=== PATIENT | male | born 1970 | race Two or more races ===

== ENCOUNTER 2017-08-05 23:29 | Inpatient (IN) | payer MEDICAID ==
[~2017-08-05] VITALS: Ht 160 cm; Wt 93.9 kg
[2017-08-05] MEDS ORDERED: NKM (23:54)
[2017-08-06] VITALS (15 sets, daily range): BP systolic 123–158; BP diastolic 73–132
--- NOTE | 2017-08-06 00:38 | Emergency Room Report ---
History of Present Illness General Chief Complaint: Abdominal Pain Source: Patient Present Illness HPI 47-year-old male with 2-3 days of right lower quadrant abdominal pain, one episode of nausea vomiting, and no constipation. No difficulty urinating. No history of prior abdominopelvic surgery. No chronic drinking, smoking or drug use.. no sick contacts. Patient states pain started after he had bad food Saturday night. Allergies: Coded Allergies: No Known Allergies (Unverified , 08/05/17) Patient History Past Medical History: none Past Surgical History: none Pertinent Family History: none Social History: Denies: smoking, alcohol use, drug use Immunizations: UTD Reviewed Nursing Documentation: PMH: Agreed, PSxH: Agreed Nursing Documentation-PMH Past Medical History: No Stated History Review of Systems All Other Systems: negative except mentioned in HPI Physical Exam Vital Signs Date Time Temp Pulse Resp B/P (MAP) Pulse Ox O2 Delivery O2 Flow Rate FiO2 08/05/17 23:48 98.1 115 18 127/78 95 Room Air Sp02 EP Interpretation: reviewed, normal General Appearance: normal inspection, well appearing, no apparent distress, alert, GCS 15, non-toxic, obese Head: normocephalic, atraumatic Eyes: bilateral eye PERRL, bilateral eye EOMI ENT: normal ENT inspection, hearing grossly normal, normal pharynx, no angioedema, normal voice, TMs + canals normal, uvula midline, moist mucus membranes Neck: normal inspection, full range of motion, supple, thyroid normal, no meningismus, no bony tend Respiratory: normal inspection, lungs clear, normal breath sounds, no rhonchi, no respiratory distress, no retraction, no accessory muscle use, no wheezing, speaking full sentences Cardiovascular #1: regular rate, rhythm, no edema, no JVD, normal capillary refill Gastrointestinal: normal inspection, normal bowel sounds, soft, no mass, no peritonitis, non-distended, no guarding, no hernia, no pulsatile mass, other - Right upper quadrant tenderness to palpation Genitourinary: no CVA tenderness Musculoskeletal: normal inspection, back normal, normal range of motion, no calf tenderness, pelvis stable, Christi's Sign negative Neurologic: normal inspection, alert, oriented x3, responsive, customer assistance associate III-XII nml as tested, motor strength/tone normal, cerebellar normal, normal gait, speech normal Psychiatric: normal inspection, judgement/insight normal, mood/affect normal, no suicidal/homicidal ideation, no delusions Skin: normal inspection, normal color, no rash Lymphatic: normal inspection, no adenopathy Procedures Critical Care Time Critical Care Time CC time 40 minutes Critical care time endorsed for this patient for severe RLQ pain found to have perforated appendicitis Critical care time includes review of laboratory tests, imaging, review of EMR, review of paperwork from SNF (if available), discussion with patient and family (if available), review of code status/POLS (if available). Critical care time also likely includes assessment of fluid status, stabilization of vital signs, selection and dosing of appropriate antibiotics Critical care time does not include any procedures which are documented elsewhere in this EMR. Medical Decision Making Diagnostic Impression: Primary Impression: Abdominal pain Qualified Codes: R10.11 - Right upper quadrant pain Additional Impression: Perforated appendicitis ER Course [id number] with right upper quadrant pain for 2-3 days associated with nausea and constipation vitals Signs stable, afebrile Leuks 19K CTAP with perforated appendicitis Dr Mcdowell consulted 235am, saw patient, will take to OR Made NPO Coags, T&S done Zosyn ABx given Admitted to Dr Pendleton, panel admit Med/surg admit 336am Rhythm Strip Diag. Results EP Interpretation: yes Rate: 98 Rhythm: NSR, no PVC's, no ectopy Last Vital Signs Date Time Temp Pulse Resp B/P (MAP) Pulse Ox O2 Delivery O2 Flow Rate FiO2 2/5/18 23:48 98.1 115 18 127/78 95 Room Air Status: improved Disposition: ADMITTED INPATIENT Condition: Critical RALPH CURIEL M.D. Aug 06, 2017 00:38
[2017-08-06] MEDS ORDERED: Morphine Sulfate 4mg/ml Inj IVP ONE (00:45)
[2017-08-06 01:44] LABS: HEMATOCRIT 50.8 % (42.0-52.0); HEMOGLOBIN 16.9 G/DL (14.2-18.0); MEAN CORPUSCULAR VOLUME 90 FL (80-99); PLATELET COUNT 266 K/UL (150-450); RED BLOOD COUNT 5.66 M/UL (4.70-6.10); RED CELL DISTRIBUTION WIDTH 13.4 % (11.6-14.8); WHITE BLOOD COUNT 18.4 K/UL (4.8-10.8)
[2017-08-06 01:48] LABS: APPEARANCE,URINE CLEAR; BILIRUBIN, URINE 1+ (NEGATIVE); GLUCOSE, URINE (UA) NEGATIVE (NEGATIVE); KETONES,URINE NEGATIVE (NEGATIVE); LEUKOCYTE ESTERASE ,URINE 1+ (NEGATIVE); NITRITE,URINE NEGATIVE (NEGATIVE); PH,URINE 6 (4.5-8.0); PROTEIN,URINE 3+ (NEGATIVE); UROBILINOGEN,URINE 8 MG/DL (0.0-1.0)
[2017-08-06 01:51] LABS: ANION GAP 8 mmol/L (5-15); BLOOD UREA NITROGEN 17 mg/dL (7-18); CALCIUM 8.6 MG/DL (8.5-10.1); CARBON DIOXIDE 26 MMOL/L (21-32); CHLORIDE 98 MMOL/L (98-107); CREATININE 1.2 MG/DL (0.55-1.30); POTASSIUM 3.7 MMOL/L (3.5-5.1); SODIUM 132 MMOL/L (136-145)
[2017-08-06 01:53] LABS: INR 1.3 (0.9-1.1)
[2017-08-06 01:56] LABS: ALANINE AMINOTRANSFERASE 38 U/L (12-78); ALBUMIN 3.7 G/DL (3.4-5.0); ALBUMIN/GLOBULIN RATIO 0.8 (1.0-2.7); ALKALINE PHOSPHATASE 102 U/L (46-116); ASPARTATE AMINO TRANSFERASE 11 U/L (15-37); BILIRUBIN,TOTAL 0.7 MG/DL (0.2-1.0)
[2017-08-06 02:04] LABS: COLOR,URINE YELLOW
[2017-08-06] MEDS ORDERED: Zosyn 3.375gm inj ONE (02:42)
[2017-08-06] MEDS ORDERED: Piperacillin/Tazobactam 3.375 GM in NS 110 ML IVPB ONE (02:45)
--- NOTE | 2017-08-06 03:39 | Anethesia Preoperative Eval ---
Anesthesia Pre-op PMH/ROS General Date of Evaluation: Aug 06, 2017 Anesthesiologist: Naz ASA Score: ASA 2 Mallampati Score Class I : Soft palate, uvula, fauces, pillars visible Class II: Soft palate, uvula, fauces visible Class III: Soft palate, base of uvula visible Class IV: Only hard plate visible Mallampati Classification: Class II Surgeon: July Diagnosis: Perforated Appendix Surgical Procedure: Lap appy Anesthesia History: none Family History: no anesthesia problems Allergies: Coded Allergies: No Known Allergies (Unverified , 08/05/17) Medications: see eMAR Past Medical History Cardiovascular: Denies: HTN, CAD, [place], valve dz, arrhythmia, other Pulmonary: Denies: asthma, COPD, LUISA, other Gastrointestinal/Genitourinary: Denies: GERD, CRI, ESRD, other Neurologic/Psychiatric: Denies: dementia, CVA, depression/anxiety, TIA, other Endocrine: Denies: DM, hypothyroidism, steroids, other HEENT: Denies: cataract (L), cataract (R), glaucoma, [place] (L), [place] (R), other Hematology/Immune: Denies: anemia, DVT, bleeding disorder, other Musculoskeletal/Integumentary: Denies: OA, RA, DJD, DDD, edema, other Other: obesity PMH Narrative: Obesity, acute perforated appendicitis PSxH Narrative: Denies Anesthesia Pre-op Phys. Exam Physician Exam Last Vital Signs Date Time Temp Pulse Resp B/P (MAP) Pulse Ox O2 Delivery O2 Flow Rate FiO2 08/06/17 03:00 101 14 153/132 96 08/06/17 02:40 98.1 08/05/17 23:48 Room Air Constitutional: NAD Neurologic: CN 2-12 intact Cardiovascular: RRR, no M/R/G Respiratory: CTA Gastrointestinal: S/NT/ND Airway Exam Mallampati Score: Class II MO: full ROM: full Teeth: intact Anesthesia Pre-op A/P Labs Hematology Test 08/06/17 01:45 White Blood Count 18.4 K/UL (4.8-10.8) H Red Blood Count 5.66 M/UL (4.70-6.10) Hemoglobin 16.9 G/DL (14.2-18.0) Hematocrit 50.8 % (42.0-52.0) Mean Corpuscular Volume 90 FL (80-99) Mean Corpuscular Hemoglobin 29.8 PG (27.0-31.0) Mean Corpuscular Hemoglobin Concent 33.2 G/DL (32.0-36.0) Red Cell Distribution Width 13.4 % (11.6-14.8) Platelet Count 266 K/UL (150-450) Mean Platelet Volume 6.2 FL (6.5-10.1) L Neutrophils (%) (Auto) % (45.0-75.0) Lymphocytes (%) (Auto) % (20.0-45.0) Monocytes (%) (Auto) % (1.0-10.0) Eosinophils (%) (Auto) % (0.0-3.0) Basophils (%) (Auto) % (0.0-2.0) Coagulation Test 08/06/17 01:45 Prothrombin Time 13.5 SEC (9.30-11.50) H Prothromb Time International Ratio 1.3 (0.9-1.1) H Chemistry Test 08/06/17 01:45 08/06/17 03:00 Sodium Level 132 MMOL/L (136-145) L Potassium Level 3.7 MMOL/L (3.5-5.1) Chloride Level 98 MMOL/L (98-107) Carbon Dioxide Level 26 MMOL/L (21-32) Anion Gap 8 mmol/L (5-15) Blood Urea Nitrogen 17 mg/dL (7-18) Creatinine 1.2 MG/DL (0.55-1.30) Estimat Glomerular Filtration Rate > 60 mL/min (>60) Glucose Level 136 MG/DL (74-106) H Calcium Level 8.6 MG/DL (8.5-10.1) Total Bilirubin 0.7 MG/DL (0.2-1.0) Aspartate Amino Transf (AST/SGOT) 11 U/L (15-37) L Alanine Aminotransferase (ALT/SGPT) 38 U/L (12-78) Alkaline Phosphatase 102 U/L (46-116) Total Protein 8.4 G/DL (6.4-8.2) H Albumin 3.7 G/DL (3.4-5.0) Globulin 4.7 g/dL Albumin/Globulin Ratio 0.8 (1.0-2.7) L Lipase 123 U/L (73-393) Lactic Acid Level Pending Risk Assessment & Plan Assessment: Obese male with perforated appendix Plan: GETA, rapid sequence, cricoid pressure Status Change Before Surgery: No Pre-Antibiotics Drug: Patient received Zosyn in ER CHAD LOPEZ M.D. Aug 06, 2017 03:39
--- NOTE | 2017-08-06 03:40 | Immediate Post-Op Evaluation ---
Immediate Post-Op Evalulation Immediate Post-Op Evalulation Procedure: Open appendectomy Date of Evaluation: Aug 06, 2017 Time of Evaluation: 06:35 IV Fluids: 1700 Estimated Blood Loss: 100 Blood Pressure Systolic: 135 Blood Pressure Diastolic: 88 Pulse Rate: 92 Respiratory Rate: 18 O2 Sat by Pulse Oximetry: 98 Temperature (Fahrenheit): 98.9 Pain Score (1-10): 0 Nausea: No Vomiting: No Complications No complication Patient Status: reacts, patent, extubated, none Hydration Status: adequate Drug: Patient received Zosyn in the ER CHAD LOPEZ M.D. Aug 06, 2017 03:40
[2017-08-06] MEDS ORDERED: LR 1000ml 1,000 ML IVLG SCH (03:41)
[2017-08-06] MEDS ORDERED: LORazepam Inj 2mg/ml 1ml IV PRN (03:45)
[2017-08-06] MEDS ORDERED: Meperidine 50mg/ml Inj(FOR RIGORS ONLY) IVP ONE (03:45)
[2017-08-06] MEDS ORDERED: Hydromorphone 0.5mg/0.5ml inj IVP PRN (03:45)
[2017-08-06] MEDS ORDERED: DiphenhydrAMINE 50mg/ml Inj IVP PRN (03:45)
[2017-08-06] MEDS ORDERED: Bacitracin 50000 Units Vial ONE (03:49)
[2017-08-06] MEDS ORDERED: NeoSporin Gu Irrig 1ml Amp IRRIG ONE (03:49)
[2017-08-06] MEDS ORDERED: Bupivacaine 0.25% Inj 30ml INJ ONE ×2 (03:49→05:50)
[2017-08-06] MEDS ORDERED: Propofol 200mg/20ml IV ONE ×2 (03:50→05:30)
[2017-08-06] MEDS ORDERED: Zemuron 50mg/5ml Inj IV ONE (04:00)
[2017-08-06] MEDS ORDERED: fentaNYL 100 mcg/2 mL IV ONE (04:00)
[2017-08-06] MEDS ORDERED: Midazolam 2mg/2ml Inj ONE (04:00)
[2017-08-06] MEDS ORDERED: Morphine Sulfate 10mg/ml Inj ONE (04:00)
[2017-08-06] MEDS ORDERED: Sterile Water Irrig 1000ml IRRIG ONE (04:00)
[2017-08-06] MEDS ORDERED: LR 1000ml ONE (04:00)
[2017-08-06] MEDS ORDERED: Succinylcholine 20mg/ml 10ml vial ONE (04:00)
--- NOTE | 2017-08-06 04:30 | Pre-Procedure Note/Attestation ---
Pre-Procedure Note/Attestation Complete Prior to Procedure Planned Procedure: not applicable Procedure Narrative: laparoscopic appendectomy possible open appendectomy Indications for Procedure Pre-Operative Diagnosis: acute appendicitis Attestation I attest that I discussed the nature of the procedure; its benefits; risks and complications; and alternatives (and the risks and benefits of such alternatives ), prior to the procedure, with the patient (or the patient's legal patient care representative). I attest that, if there was a reasonable possibility of needing a blood transfusion, the patient (or the patient's legal patient care representative) was given the [facility] standardized written summary, pursuant to the Jeremiah Jasen Blood Safety Act ([place] Health and Safety Code # 1645, as amended). I attest that I re-evaluated the patient just prior to the surgery and that there has been no change in the patient's H&P, except as documented below: SAMMIE LOO Aug 06, 2017 04:30
[2017-08-06] MEDS ORDERED: D5 1/2NS 1,000 ML IV SCH (05:07)
[2017-08-06] MEDS ORDERED: Nitroglycerin Subl 0.4mg tab SL PRN (05:15)
[2017-08-06] MEDS ORDERED: Miralax 17gm pkt ORAL PRN (05:15)
[2017-08-06] MEDS ORDERED: Mylanta II UD 30ml ORAL PRN (05:15)
[2017-08-06] MEDS ORDERED: Morphine Sulfate 2mg/ml Inj IVP PRN (05:15)
--- NOTE | 2017-08-06 06:01 | Brief Operative Note ---
Immediate Post Operative Note Operative Note Pre-op Diagnosis: acute appendicitis Procedure: attempted lap appy open appendectomy Post-op Diagnosis: acute perforated appendicitis Findings: consistent w/pre-op dx studies Surgeon: Radha Salvage Repairer: none Anesthesiologist: Dr. Goodrich Anesthesia: general Specimen: yes Complications: none Condition: stable Fluids: per anesthesiologist Estimated Blood Loss: volume - 100 ml Drains: GEOFF Implant(s) used?: No SAMMIE LOO Aug 06, 2017 06:01
[2017-08-06] MEDS ORDERED: Acetaminophen 650 MG SUPP RECTAL PRN (07:00)
[2017-08-06] MEDS: D5 1/2NS w/KCl 20mEq 1,000 ML IV SCH ×2 (09:46→19:00)
[2017-08-06] MEDS: Heparin 5000 units/ml inj SUBQ SCH ×2 (09:48→20:24)
[2017-08-06] MEDS: Pantoprazole Inj IVP SCH (09:48)
[2017-08-06] MEDS: HYDROmorphone 1mg/ml Carpuject IVP PRN ×3 (10:04→21:40)
--- NOTE | 2017-08-06 12:36 | Consultation ---
History of Present Illness General Date patient seen: Aug 06, 2017 Time patient seen: 12:34 Chief Complaint: Abdominal Pain Present Illness HPI 47 y/o M with no prior medical hx presents to ED on 08/06 with 2-3 days of RLQ pain, nausea and vomiting x1. He was foudn to have acute appendicitis and underwent open appendectomy after attempt lap appy. Was found to have acute perforated appendicitis. Denies constipation, urinary symptoms, sick contacts Allergies: Coded Allergies: No Known Allergies (Unverified , 08/05/17) Medication History Scheduled No Known Medications* (NKM - No Known Medications*), 0 ., (Reported) Patient History Healthcare decision maker Resuscitation status Advanced Directive on File Patient History Narrative Pmhx: as above SH:No chronic drinking, smoking or drug use Fhx: non contributory Review of Systems All Other Systems: negative except mentioned in HPI Physical Exam Physical Exam Narrative General Appearance: normal inspection, well appearing, no apparent distress, alert,bese Head: normocephalic, atraumatic Eyes: bilateral eye PERRL, bilateral eye EOMI ENT: normal ENT inspection, hearing grossly normal, normal pharynx, no angioedema, normal voice, TMs + canals normal, uvula midline, moist mucus membranes Neck: normal inspection, full range of motion, supple, thyroid normal, no meningismus, no bony tend Respiratory: normal inspection, lungs clear, normal breath sounds, no rhonchi, no respiratory distress, no retraction, no accessory muscle use, no wheezing, speaking full sentences Cardiovascular : regular rate, rhythm, no edema, no JVD, normal capillary refill Gastrointestinal: surgical dressings and GEOFF drain in place Genitourinary: no CVA tenderness Musculoskeletal: normal inspection, back normal, normal range of motion, no calf tenderness, pelvis stable, Skin: normal inspection, normal color, no rash Last 24 Hour Vital Signs Date Time Temp Pulse Resp B/P (MAP) Pulse Ox O2 Delivery O2 Flow Rate FiO2 08/06/17 10:30 98.5 08/06/17 07:34 98.5 08/06/17 07:27 98.3 97 26 137/75 96 Nasal Cannula 3.0 08/06/17 07:20 96 26 123/73 96 Nasal Cannula 3.0 08/06/17 07:10 96 27 128/75 96 Nasal Cannula 3.0 08/06/17 07:00 92 26 128/88 98 Nasal Cannula 3.0 08/06/17 06:50 88 25 141/88 100 Simple Mask 6.0 08/06/17 06:45 91 24 135/84 100 Simple Mask 6.0 08/06/17 06:35 90 21 133/89 100 Simple Mask 6.0 08/06/17 06:30 91 20 135/88 99 Simple Mask 6.0 08/06/17 06:30 92 18 98 08/06/17 06:25 98.9 93 18 147/78 99 Simple Mask 6.0 08/06/17 04:00 98.1 101 14 158/108 95 Room Air 89 08/06/17 03:47 98.1 89 14 158/108 95 Room Air 08/06/17 03:00 101 14 153/132 96 08/06/17 02:40 98.1 08/06/17 02:00 104 16 151/100 96 08/06/17 00:30 116 15 142/93 98 08/05/17 23:48 98.1 115 18 127/78 95 Room Air Intake and Output 08/05/17 08/06/17 19:00 07:00 Intake Total 700 ml Output Total 10 ml Balance 690 ml Intake Oral 0 ml IV Total 700 ml Output Estimated Blood Loss 10 ml Laboratory Tests Test 08/06/17 01:45 08/06/17 03:00 White Blood Count 18.4 K/UL (4.8-10.8) H Red Blood Count 5.66 M/UL (4.70-6.10) Hemoglobin 16.9 G/DL (14.2-18.0) Hematocrit 50.8 % (42.0-52.0) Mean Corpuscular Volume 90 FL (80-99) Mean Corpuscular Hemoglobin 29.8 PG (27.0-31.0) Mean Corpuscular Hemoglobin Concent 33.2 G/DL (32.0-36.0) Red Cell Distribution Width 13.4 % (11.6-14.8) Platelet Count 266 K/UL (150-450) Mean Platelet Volume 6.2 FL (6.5-10.1) L Neutrophils (%) (Auto) % (45.0-75.0) Lymphocytes (%) (Auto) % (20.0-45.0) Monocytes (%) (Auto) % (1.0-10.0) Eosinophils (%) (Auto) % (0.0-3.0) Basophils (%) (Auto) % (0.0-2.0) Prothrombin Time 13.5 SEC (9.30-11.50) H Prothromb Time International Ratio 1.3 (0.9-1.1) H Urine Color Yellow Urine Appearance Clear Urine pH 6 (4.5-8.0) Urine Specific [place] 1.015 (1.005-1.035) Urine Protein 3+ (NEGATIVE) H Urine Glucose (UA) Negative (NEGATIVE) Urine Ketones Negative (NEGATIVE) Urine Occult Blood 1+ (NEGATIVE) H Urine Nitrite Negative (NEGATIVE) Urine Bilirubin 1+ (NEGATIVE) H Urine Ictotest Positive Urine Urobilinogen 8 MG/DL (0.0-1.0) H Urine Leukocyte Esterase 1+ (NEGATIVE) H Urine RBC 10-15 /HPF (0 - 0) H Urine WBC 0-2 /HPF (0 - 0) Urine Squamous Epithelial Cells None /LPF (NONE/OCC) Urine Bacteria Few /HPF (NONE) Urine Mucus Many /LPF (NONE/OCC) H Sodium Level 132 MMOL/L (136-145) L Potassium Level 3.7 MMOL/L (3.5-5.1) Chloride Level 98 MMOL/L (98-107) Carbon Dioxide Level 26 MMOL/L (21-32) Anion Gap 8 mmol/L (5-15) Blood Urea Nitrogen 17 mg/dL (7-18) Creatinine 1.2 MG/DL (0.55-1.30) Estimat Glomerular Filtration Rate > 60 mL/min (>60) Glucose Level 136 MG/DL (74-106) H Calcium Level 8.6 MG/DL (8.5-10.1) Total Bilirubin 0.7 MG/DL (0.2-1.0) Aspartate Amino Transf (AST/SGOT) 11 U/L (15-37) L Alanine Aminotransferase (ALT/SGPT) 38 U/L (12-78) Alkaline Phosphatase 102 U/L (46-116) Total Protein 8.4 G/DL (6.4-8.2) H Albumin 3.7 G/DL (3.4-5.0) Globulin 4.7 g/dL Albumin/Globulin Ratio 0.8 (1.0-2.7) L Lipase 123 U/L (73-393) Lactic Acid Level 0.90 mmol/L (0.66-2.22) Height (Feet): 5 Height (Inches): 3.00 Weight (Pounds): 207 Medications Current Medications Medications (Trade) Dose Ordered Sig/Vinh Route PRN Reason Start Time Stop Time Status Last Admin Dose Admin Acetaminophen (Tylenol) 650 mg Q4H PRN ORAL fever 08/06/17 05:15 09/05/17 05:14 Acetaminophen (Tylenol) 650 mg Q4H PRN RECTAL Mild Pain (Pain Scale 1-3) 08/06/17 07:00 09/05/17 06:59 Dextrose (Dextrose 50%) STAT PRN IV Hypoglycemia 08/06/17 05:15 09/05/17 05:14 Dextrose/ Electrolytes 1,000 ml @ 100 mls/hr Q10H IV 08/06/17 09:00 09/05/17 08:59 08/06/17 09:46 Diphenhydramine HCl (Benadryl) 25 mg Q6H PRN ORAL Itching/Pruritis 08/06/17 05:15 09/05/17 05:14 Gentamicin Sulfate/Sodium Chloride 50 ml @ 100 mls/hr EVERY 8 HOURS IVPB 08/06/17 14:00 08/07/17 08:00 Heparin Sodium (Porcine) (Heparin 5000 units/ml) 5,000 units EVERY 12 HOURS SUBQ 08/06/17 09:00 09/05/17 08:59 08/06/17 09:48 Hydromorphone HCl (Dilaudid) 1 mg Q4H PRN IVP MOD-SEVERE PAIN 4-10 08/06/17 07:00 08/13/17 06:59 08/06/17 10:04 Nitroglycerin (Ntg) 0.4 mg Q5M X 3 DOSES PRN SL Prn Chest Pain 08/06/17 05:15 09/05/17 05:14 Ondansetron HCl (Zofran) 4 mg Q6H PRN IVP Nausea & Vomiting 08/06/17 05:15 09/05/17 05:14 Pantoprazole (Protonix) 40 mg DAILY IVP 08/06/17 09:00 09/05/17 08:59 08/06/17 09:48 Piperacillin Sod/ Tazobactam Sod 3.375 gm/Sodium Chloride 110 ml @ 27.5 mls/hr EVERY 8 HOURS IVPB 08/06/17 14:00 08/11/17 13:59 08/06/17 12:11 Assessment/Plan Assessment/Plan Abx: Zosyn 08/06- IV Gentamicin 08/06- Assessment: Acute perforated appendicitis s/p open appendectomy 08/06 Leukocytosis- 2ry to above -u/a no pyuria Plan: -Switch Zosyn and Gentamicin #1/5 to Ceftriaxone and Flagyl; upon discharge PO Cefdinir and Flagyl -Monitor CBC/BMP, temperatures -wound care -sx f/u Thank you for this consultation. Will continue to follow along with you. Discussed with Rebekah Craig M.D. Aug 06, 2017 12:36
--- NOTE | 2017-08-06 12:48 | Diagnostic Imaging Report ---
Clinical Indication: Right lower quadrant pain x3 days Technique: No oral contrast utilized, per emergency room physician request IV administration nonionic contrast. Venous phase spiral acquisition obtained through the abdomen and pelvis. Multiplanar reconstructions were generated. Total dose length product 1126.5 mGycm. CTDIvol(s) 19.51 mGy. Dose reduction achieved using automated exposure control Comparison: none Findings: The appendix is markedly dilated, fluid-filled, demonstrates wall enhancement and considerable periappendiceal fat stranding. Trace appendiceal fluid and a single small gas bubble are demonstrated. There is colonic diverticulosis. No evidence of diverticulitis. There is mild wall thickening of the sigmoid colon. Focally dilated gas-filled small bowel loops are seen in the left upper quadrant. No free intraperitoneal air or fluid. Distal esophagus, stomach, duodenum are unremarkable. The liver is diffusely hypoattenuating, consistent with fatty change. Gallbladder, bile ducts, pancreas, spleen, adrenals, kidneys are unremarkable. No pelvic mass or adenopathy. There is a small fat-containing left inguinal hernia. The bones are unremarkable. The included lung bases demonstrate some posterior dependent atelectatic changes Impression: Positive for acute appendicitis. There is evidence of perforation as well, with perinephric fat stranding, focal extraluminal fluid and gas Colonic diverticulosis. No evidence of diverticulitis Fatty liver Incidental findings as noted, including posterior dependent atelectasis, small fat-containing left inguinal hernia This agrees with the preliminary interpretation provided overnight by [facility] teleradiology service. The CT scanner at [facility] is accredited by the [employer] and the scans are performed using protocols designed to limit radiation exposure to as low as reasonably achievable to attain images of sufficient resolution adequate for diagnostic evaluation.
[2017-08-06] MEDS ORDERED: GENTAMICIN 100 MG/50 ML IVPB SCH (14:00)
[2017-08-06] MEDS ORDERED: Piperacillin/Tazobactam 3.375 GM in NS 110 ML IVPB SCH (14:00)
--- NOTE | 2017-08-06 14:59 | History and Physical ---
History of Present Illness General Date patient seen: Aug 06, 2017 Reason for Hospitalization: Abdominal Pain Present Illness HPI 47-year-old male with 2-3 days of right lower quadrant abdominal pain, one episode of nausea vomiting, and no constipation. No difficulty urinating. No history of prior abdominopelvic surgery. No chronic drinking, smoking or drug use.. no sick contacts. pt was diagnosed to have appendicitis and underwent resection. Allergies: Coded Allergies: No Known Allergies (Unverified , 08/05/17) Medication History Scheduled No Known Medications* (NKM - No Known Medications*), 0 ., (Reported) Patient History Healthcare decision maker Resuscitation status Advanced Directive on File Review of Systems All Other Systems: negative except mentioned in HPI Physical Exam Lines, tubes and drains: PICC, trach Neck: supple, abnormal alignment Respiratory/Chest: decreased breath sounds Abdomen: guarding, rebound Last 24 Hour Vital Signs Date Time Temp Pulse Resp B/P (MAP) Pulse Ox O2 Delivery O2 Flow Rate FiO2 08/06/17 10:30 98.5 08/06/17 07:34 98.5 08/06/17 07:27 98.3 97 26 137/75 96 Nasal Cannula 3.0 08/06/17 07:20 96 26 123/73 96 Nasal Cannula 3.0 08/06/17 07:10 96 27 128/75 96 Nasal Cannula 3.0 08/06/17 07:00 92 26 128/88 98 Nasal Cannula 3.0 08/06/17 06:50 88 25 141/88 100 Simple Mask 6.0 08/06/17 06:45 91 24 135/84 100 Simple Mask 6.0 08/06/17 06:35 90 21 133/89 100 Simple Mask 6.0 08/06/17 06:30 91 20 135/88 99 Simple Mask 6.0 08/06/17 06:30 92 18 98 08/06/17 06:25 98.9 93 18 147/78 99 Simple Mask 6.0 08/06/17 04:00 98.1 101 14 158/108 95 Room Air 89 08/06/17 03:47 98.1 89 14 158/108 95 Room Air 08/06/17 03:00 101 14 153/132 96 08/06/17 02:40 98.1 08/06/17 02:00 104 16 151/100 96 08/06/17 00:30 116 15 142/93 98 08/05/17 23:48 98.1 115 18 127/78 95 Room Air Intake and Output 08/05/17 08/06/17 19:00 07:00 Intake Total 700 ml Output Total 10 ml Balance 690 ml Intake Oral 0 ml IV Total 700 ml Output Estimated Blood Loss 10 ml Laboratory Tests Test 08/06/17 01:45 08/06/17 03:00 White Blood Count 18.4 K/UL (4.8-10.8) H Red Blood Count 5.66 M/UL (4.70-6.10) Hemoglobin 16.9 G/DL (14.2-18.0) Hematocrit 50.8 % (42.0-52.0) Mean Corpuscular Volume 90 FL (80-99) Mean Corpuscular Hemoglobin 29.8 PG (27.0-31.0) Mean Corpuscular Hemoglobin Concent 33.2 G/DL (32.0-36.0) Red Cell Distribution Width 13.4 % (11.6-14.8) Platelet Count 266 K/UL (150-450) Mean Platelet Volume 6.2 FL (6.5-10.1) L Neutrophils (%) (Auto) % (45.0-75.0) Lymphocytes (%) (Auto) % (20.0-45.0) Monocytes (%) (Auto) % (1.0-10.0) Eosinophils (%) (Auto) % (0.0-3.0) Basophils (%) (Auto) % (0.0-2.0) Prothrombin Time 13.5 SEC (9.30-11.50) H Prothromb Time International Ratio 1.3 (0.9-1.1) H Urine Color Yellow Urine Appearance Clear Urine pH 6 (4.5-8.0) Urine Specific [place] 1.015 (1.005-1.035) Urine Protein 3+ (NEGATIVE) H Urine Glucose (UA) Negative (NEGATIVE) Urine Ketones Negative (NEGATIVE) Urine Occult Blood 1+ (NEGATIVE) H Urine Nitrite Negative (NEGATIVE) Urine Bilirubin 1+ (NEGATIVE) H Urine Ictotest Positive Urine Urobilinogen 8 MG/DL (0.0-1.0) H Urine Leukocyte Esterase 1+ (NEGATIVE) H Urine RBC 10-15 /HPF (0 - 0) H Urine WBC 0-2 /HPF (0 - 0) Urine Squamous Epithelial Cells None /LPF (NONE/OCC) Urine Bacteria Few /HPF (NONE) Urine Mucus Many /LPF (NONE/OCC) H Sodium Level 132 MMOL/L (136-145) L Potassium Level 3.7 MMOL/L (3.5-5.1) Chloride Level 98 MMOL/L (98-107) Carbon Dioxide Level 26 MMOL/L (21-32) Anion Gap 8 mmol/L (5-15) Blood Urea Nitrogen 17 mg/dL (7-18) Creatinine 1.2 MG/DL (0.55-1.30) Estimat Glomerular Filtration Rate > 60 mL/min (>60) Glucose Level 136 MG/DL (74-106) H Calcium Level 8.6 MG/DL (8.5-10.1) Total Bilirubin 0.7 MG/DL (0.2-1.0) Aspartate Amino Transf (AST/SGOT) 11 U/L (15-37) L Alanine Aminotransferase (ALT/SGPT) 38 U/L (12-78) Alkaline Phosphatase 102 U/L (46-116) Total Protein 8.4 G/DL (6.4-8.2) H Albumin 3.7 G/DL (3.4-5.0) Globulin 4.7 g/dL Albumin/Globulin Ratio 0.8 (1.0-2.7) L Lipase 123 U/L (73-393) Lactic Acid Level 0.90 mmol/L (0.66-2.22) Height (Feet): 5 Height (Inches): 3.00 Weight (Pounds): 207 Medications Current Medications Medications (Trade) Dose Ordered Sig/Vinh Route PRN Reason Start Time Stop Time Status Last Admin Dose Admin Acetaminophen (Tylenol) 650 mg Q4H PRN ORAL fever 08/06/17 05:15 09/05/17 05:14 Acetaminophen (Tylenol) 650 mg Q4H PRN RECTAL Mild Pain (Pain Scale 1-3) 08/06/17 07:00 09/05/17 06:59 Ceftriaxone Sodium 1 gm/ Sodium Chloride 55 ml @ 110 mls/hr Q24H IVPB 08/06/17 20:00 08/13/17 19:59 Dextrose (Dextrose 50%) STAT PRN IV Hypoglycemia 08/06/17 05:15 09/05/17 05:14 Dextrose/ Electrolytes 1,000 ml @ 100 mls/hr Q10H IV 08/06/17 09:00 09/05/17 08:59 08/06/17 09:46 Diphenhydramine HCl (Benadryl) 25 mg Q6H PRN ORAL Itching/Pruritis 08/06/17 05:15 09/05/17 05:14 Heparin Sodium (Porcine) (Heparin 5000 units/ml) 5,000 units EVERY 12 HOURS SUBQ 08/06/17 09:00 09/05/17 08:59 08/06/17 09:48 Hydromorphone HCl (Dilaudid) 1 mg Q4H PRN IVP MOD-SEVERE PAIN 4-10 08/06/17 07:00 08/13/17 06:59 08/06/17 10:04 Metronidazole 100 ml @ 100 mls/hr Q8HR IVPB 08/06/17 20:00 08/13/17 19:59 Nitroglycerin (Ntg) 0.4 mg Q5M X 3 DOSES PRN SL Prn Chest Pain 08/06/17 05:15 09/05/17 05:14 Ondansetron HCl (Zofran) 4 mg Q6H PRN IVP Nausea & Vomiting 08/06/17 05:15 09/05/17 05:14 Pantoprazole (Protonix) 40 mg DAILY IVP 08/06/17 09:00 09/05/17 08:59 08/06/17 09:48 Assessment/Plan Problem List: (1) Perforated appendicitis ICD Codes: K35.2 - Acute appendicitis with generalized peritonitis SNOMED: [id number] Assessment/Plan npo IV abx check cultures check electrolytes ATILIO WONG Aug 06, 2017 14:59
--- NOTE | 2017-08-06 15:30 | Consultation ---
DATE OF CONSULTATION: 08/06/2017 PREOPERATIVE CONSULTATION CONSULTING PHYSICIAN: Tracey Mcdowell M.D. REQUESTING PHYSICIAN: ER physician. REASON FOR CONSULTATION: Abdominal pain. HISTORY OF PRESENT ILLNESS: This is a 47-year-old male, who presented to emergency room complaining of two days history of abdominal pain. He stated that the pain started on 08/03/2017 at night, has been located at right lower quadrant. This pain had been associated with nausea and vomiting. He had normal bowel movements. He denies cough, dysuria, or frequency. He denies any previous history of similar pain. PAST MEDICAL HISTORY: The patient denies allergies, asthma, diabetes, cardiac and renal diseases. He has a history of hypertension. PAST SURGICAL HISTORY: Include right orchiectomy for undescended testis. MEDICATIONS: None. SOCIAL HISTORY: The patient is a 47-year-old male, single with two children. Currently unemployed. Denies smoking, but drinks beer everyday. REVIEW OF SYSTEMS: Noncontributory. PHYSICAL EXAMINATION: GENERAL: The patient appeared to be a well developed, well nourished, obese 47-year-old male, lying on the gurney, complaining of abdominal pain. HEENT: Head is normocephalic and atraumatic. Pupils are equal, round, and reactive to light. Mouth is clear. NECK: There is no palpable thyromegaly or adenopathy. CHEST: Clear to auscultation and percussion. HEART: There is no gallop or murmur. S1 and S2 are within normal limits. ABDOMEN: Distended and protuberant. Soft with tenderness and guarding at right lower quadrant. There is no palpable organomegaly and bowel sounds are audible. GENITAL: The right testicle is missing. EXTREMITIES: Within normal limits. LABORATORY AND DIAGNOSTIC DATA: CBC has shown a WBC of 18,400 with a left shift. Chemistry is normal. A CAT scan of the abdomen has been interpreted as acute appendicitis, possible perforated appendicitis. It should be noted the INR on this patient is 1.3. ASSESSMENT: Acute appendicitis. PLAN: After rehydration, the patient will undergo possible open appendectomy. The risks and benefits have been explained to him. He understood and granted consent. Tracey Mcdowell M.D. DR: PILAR JOB#: [id number] CC:
--- NOTE | 2017-08-06 16:20 | GI Initial Consult Note ---
History of Present Illness General Date patient seen: Aug 06, 2017 Time patient seen: 16:19 Reason for Hospitalization: Abdominal Pain Referring physician: ATILIO ALLEN Reason for Consultation: ABDOMINAL PAIN Present Illness HPI 47-year-old male with 2-3 days of right lower quadrant abdominal pain, one episode of nausea vomiting, and no constipation. No difficulty urinating. No history of prior abdominopelvic surgery. No chronic drinking, smoking or drug use.. no sick contacts. Patient states pain started after he had bad food Saturday night. GI consulted for abdominal pain. Pt seen on floor, awake A&Ox4 NAD c/o of pain to the surgical incision site. The patient presented with abdominal pain, found to have a perforated appendix now s/p open appy currently in post op med surg unit. He presents today with leukocytosis. Currently has tolerable amount of pain to the surgical. No history of endoscopy / colonoscopies. Home Meds Reported Medications No Known Medications* (NKM - No Known Medications*) ., 0 ., 0 Refills 08/05/17 Med list reviewed/reconciled: Yes Allergies: Coded Allergies: No Known Allergies (Unverified , 08/05/17) Patient History History Provided By: Patient, Medical Record PM Narrative Past Medical History: none Past Surgical History: none Pertinent Family History: none Social History: Denies: smoking, alcohol use, drug use Immunizations: UTD Reviewed Nursing Documentation: PMH: Agreed, PSxH: Agreed Nursing Documentation-[facility] Past Medical History: No Stated History Social History: Denies: smoking, alcohol use, drug use, other Review of Systems All Other Systems: negative except mentioned in HPI Physical Exam Vital Signs Date Time Temp Pulse Resp B/P (MAP) Pulse Ox O2 Delivery O2 Flow Rate FiO2 08/05/17 23:48 98.1 115 18 127/78 95 Room Air 08/06/17 06:25 6.0 Sp02 EP Interpretation: reviewed, normal Labs Laboratory Tests Test 08/06/17 01:45 08/06/17 03:00 White Blood Count 18.4 K/UL (4.8-10.8) H Red Blood Count 5.66 M/UL (4.70-6.10) Hemoglobin 16.9 G/DL (14.2-18.0) Hematocrit 50.8 % (42.0-52.0) Mean Corpuscular Volume 90 FL (80-99) Mean Corpuscular Hemoglobin 29.8 PG (27.0-31.0) Mean Corpuscular Hemoglobin Concent 33.2 G/DL (32.0-36.0) Red Cell Distribution Width 13.4 % (11.6-14.8) Platelet Count 266 K/UL (150-450) Mean Platelet Volume 6.2 FL (6.5-10.1) L Neutrophils (%) (Auto) % (45.0-75.0) Lymphocytes (%) (Auto) % (20.0-45.0) Monocytes (%) (Auto) % (1.0-10.0) Eosinophils (%) (Auto) % (0.0-3.0) Basophils (%) (Auto) % (0.0-2.0) Prothrombin Time 13.5 SEC (9.30-11.50) H Prothromb Time International Ratio 1.3 (0.9-1.1) H Urine Color Yellow Urine Appearance Clear Urine pH 6 (4.5-8.0) Urine Specific [place] 1.015 (1.005-1.035) Urine Protein 3+ (NEGATIVE) H Urine Glucose (UA) Negative (NEGATIVE) Urine Ketones Negative (NEGATIVE) Urine Occult Blood 1+ (NEGATIVE) H Urine Nitrite Negative (NEGATIVE) Urine Bilirubin 1+ (NEGATIVE) H Urine Ictotest Positive Urine Urobilinogen 8 MG/DL (0.0-1.0) H Urine Leukocyte Esterase 1+ (NEGATIVE) H Urine RBC 10-15 /HPF (0 - 0) H Urine WBC 0-2 /HPF (0 - 0) Urine Squamous Epithelial Cells None /LPF (NONE/OCC) Urine Bacteria Few /HPF (NONE) Urine Mucus Many /LPF (NONE/OCC) H Sodium Level 132 MMOL/L (136-145) L Potassium Level 3.7 MMOL/L (3.5-5.1) Chloride Level 98 MMOL/L (98-107) Carbon Dioxide Level 26 MMOL/L (21-32) Anion Gap 8 mmol/L (5-15) Blood Urea Nitrogen 17 mg/dL (7-18) Creatinine 1.2 MG/DL (0.55-1.30) Estimat Glomerular Filtration Rate > 60 mL/min (>60) Glucose Level 136 MG/DL (74-106) H Calcium Level 8.6 MG/DL (8.5-10.1) Total Bilirubin 0.7 MG/DL (0.2-1.0) Aspartate Amino Transf (AST/SGOT) 11 U/L (15-37) L Alanine Aminotransferase (ALT/SGPT) 38 U/L (12-78) Alkaline Phosphatase 102 U/L (46-116) Total Protein 8.4 G/DL (6.4-8.2) H Albumin 3.7 G/DL (3.4-5.0) Globulin 4.7 g/dL Albumin/Globulin Ratio 0.8 (1.0-2.7) L Lipase 123 U/L (73-393) Lactic Acid Level 0.90 mmol/L (0.66-2.22) General Appearance: well appearing, no apparent distress, alert Head: normocephalic EENT: PERRL/EOMI, normal ENT inspection Neck: supple Respiratory: normal breath sounds, no respiratory distress Cardiovascular: normal rate Gastrointestinal: normal inspection, non tender, soft, normal bowel sounds, non -distended, other - surgical site R sided abdomen Rectal: deferred Genitourinary: deferred Musculoskeletal: normal inspection, back normal Neurologic: normal inspection, alert, oriented x3, responsive Psychiatric: normal inspection, judgement/insight normal, memory normal Skin: normal inspection, normal color, no rash, warm/dry, palpation normal, well hydrated Lymphatic: normal inspection, no adenopathy Current Medications Current Medications Medications (Trade) Dose Ordered Sig/Vinh Route PRN Reason Start Time Stop Time Status Last Admin Dose Admin Acetaminophen (Tylenol) 650 mg Q4H PRN ORAL fever 08/06/17 05:15 09/05/17 05:14 Acetaminophen (Tylenol) 650 mg Q4H PRN RECTAL Mild Pain (Pain Scale 1-3) 08/06/17 07:00 09/05/17 06:59 Ceftriaxone Sodium 1 gm/ Sodium Chloride 55 ml @ 110 mls/hr Q24H IVPB 08/06/17 20:00 08/13/17 19:59 Dextrose (Dextrose 50%) STAT PRN IV Hypoglycemia 08/06/17 05:15 09/05/17 05:14 Dextrose/ Electrolytes 1,000 ml @ 100 mls/hr Q10H IV 08/06/17 09:00 09/05/17 08:59 08/06/17 09:46 Diphenhydramine HCl (Benadryl) 25 mg Q6H PRN ORAL Itching/Pruritis 08/06/17 05:15 09/05/17 05:14 Heparin Sodium (Porcine) (Heparin 5000 units/ml) 5,000 units EVERY 12 HOURS SUBQ 08/06/17 09:00 09/05/17 08:59 08/06/17 09:48 Hydromorphone HCl (Dilaudid) 1 mg Q4H PRN IVP MOD-SEVERE PAIN 4-10 08/06/17 07:00 08/13/17 06:59 08/06/17 10:04 Metronidazole 100 ml @ 100 mls/hr Q8HR IVPB 08/06/17 20:00 08/13/17 19:59 Nitroglycerin (Ntg) 0.4 mg Q5M X 3 DOSES PRN SL Prn Chest Pain 08/06/17 05:15 09/05/17 05:14 Ondansetron HCl (Zofran) 4 mg Q6H PRN IVP Nausea & Vomiting 08/06/17 05:15 09/05/17 05:14 Pantoprazole (Protonix) 40 mg DAILY IVP 08/06/17 09:00 09/05/17 08:59 08/06/17 09:48 GI: Plan Problems: (1) Perforated appendicitis (2) Abdominal pain Plan fu surgical recs NPO + IVFs pain mgmt electrolyte replacement abx fu labs Discussed with Dr. Samano. Thank you for this patient referral, we will follow. Hien Smith N.P. Aug 06, 2017 16:19
--- NOTE | 2017-08-06 17:09 | General Surgery Progress Note ---
General Surgery-Progress Note Subjective Procedure Performed attempted lap appy open appendectomy Objective Last 24 Hour Vital Signs Date Time Temp Pulse Resp B/P (MAP) Pulse Ox O2 Delivery O2 Flow Rate FiO2 08/06/17 16:00 98.4 107 18 135/93 92 Room Air 08/06/17 10:30 98.5 08/06/17 07:34 98.5 08/06/17 07:27 98.3 97 26 137/75 96 Nasal Cannula 3.0 08/06/17 07:20 96 26 123/73 96 Nasal Cannula 3.0 08/06/17 07:10 96 27 128/75 96 Nasal Cannula 3.0 08/06/17 07:00 92 26 128/88 98 Nasal Cannula 3.0 08/06/17 06:50 88 25 141/88 100 Simple Mask 6.0 08/06/17 06:45 91 24 135/84 100 Simple Mask 6.0 08/06/17 06:35 90 21 133/89 100 Simple Mask 6.0 08/06/17 06:30 91 20 135/88 99 Simple Mask 6.0 08/06/17 06:30 92 18 98 08/06/17 06:25 98.9 93 18 147/78 99 Simple Mask 6.0 08/06/17 04:00 98.1 101 14 158/108 95 Room Air 89 08/06/17 03:47 98.1 89 14 158/108 95 Room Air 08/06/17 03:00 101 14 153/132 96 08/06/17 02:40 98.1 08/06/17 02:00 104 16 151/100 96 08/06/17 00:30 116 15 142/93 98 08/05/17 23:48 98.1 115 18 127/78 95 Room Air I&O Intake and Output 08/05/17 08/06/17 19:00 07:00 Intake Total 700 ml Output Total 10 ml Balance 690 ml Intake Oral 0 ml IV Total 700 ml Output Estimated Blood Loss 10 ml Dressing: dry Drains: keri Respiratory: clear Abdomen: soft, tenderness, absent bowel sounds Extremities: no tenderness Laboratory Tests Test 08/06/17 01:45 08/06/17 03:00 White Blood Count 18.4 K/UL (4.8-10.8) H Red Blood Count 5.66 M/UL (4.70-6.10) Hemoglobin 16.9 G/DL (14.2-18.0) Hematocrit 50.8 % (42.0-52.0) Mean Corpuscular Volume 90 FL (80-99) Mean Corpuscular Hemoglobin 29.8 PG (27.0-31.0) Mean Corpuscular Hemoglobin Concent 33.2 G/DL (32.0-36.0) Red Cell Distribution Width 13.4 % (11.6-14.8) Platelet Count 266 K/UL (150-450) Mean Platelet Volume 6.2 FL (6.5-10.1) L Neutrophils (%) (Auto) % (45.0-75.0) Lymphocytes (%) (Auto) % (20.0-45.0) Monocytes (%) (Auto) % (1.0-10.0) Eosinophils (%) (Auto) % (0.0-3.0) Basophils (%) (Auto) % (0.0-2.0) Prothrombin Time 13.5 SEC (9.30-11.50) H Prothromb Time International Ratio 1.3 (0.9-1.1) H Urine Color Yellow Urine Appearance Clear Urine pH 6 (4.5-8.0) Urine Specific [place] 1.015 (1.005-1.035) Urine Protein 3+ (NEGATIVE) H Urine Glucose (UA) Negative (NEGATIVE) Urine Ketones Negative (NEGATIVE) Urine Occult Blood 1+ (NEGATIVE) H Urine Nitrite Negative (NEGATIVE) Urine Bilirubin 1+ (NEGATIVE) H Urine Ictotest Positive Urine Urobilinogen 8 MG/DL (0.0-1.0) H Urine Leukocyte Esterase 1+ (NEGATIVE) H Urine RBC 10-15 /HPF (0 - 0) H Urine WBC 0-2 /HPF (0 - 0) Urine Squamous Epithelial Cells None /LPF (NONE/OCC) Urine Bacteria Few /HPF (NONE) Urine Mucus Many /LPF (NONE/OCC) H Sodium Level 132 MMOL/L (136-145) L Potassium Level 3.7 MMOL/L (3.5-5.1) Chloride Level 98 MMOL/L (98-107) Carbon Dioxide Level 26 MMOL/L (21-32) Anion Gap 8 mmol/L (5-15) Blood Urea Nitrogen 17 mg/dL (7-18) Creatinine 1.2 MG/DL (0.55-1.30) Estimat Glomerular Filtration Rate > 60 mL/min (>60) Glucose Level 136 MG/DL (74-106) H Calcium Level 8.6 MG/DL (8.5-10.1) Total Bilirubin 0.7 MG/DL (0.2-1.0) Aspartate Amino Transf (AST/SGOT) 11 U/L (15-37) L Alanine Aminotransferase (ALT/SGPT) 38 U/L (12-78) Alkaline Phosphatase 102 U/L (46-116) Total Protein 8.4 G/DL (6.4-8.2) H Albumin 3.7 G/DL (3.4-5.0) Globulin 4.7 g/dL Albumin/Globulin Ratio 0.8 (1.0-2.7) L Lipase 123 U/L (73-393) Lactic Acid Level 0.90 mmol/L (0.66-2.22) Assessment Post-op Diagnosis acute perforated appendicitis Plan Additional Comments continue antibiotics SAMMIE LOO Aug 06, 2017 17:08
[2017-08-06] MEDS ORDERED: cefTRIAXone 1 GM in NS 55 ML IVPB SCH (20:00)
--- NOTE | 2017-08-06 22:00 | Operative Note - Dictated ---
DATE OF OPERATION: 08/06/2017 PREOPERATIVE DIAGNOSIS: Acute appendicitis. POSTOPERATIVE DIAGNOSIS: Acute perforated appendicitis. OPERATION PERFORMED: 1. Attempted laparoscopic appendectomy. 2. Open appendectomy. COMPLICATIONS: None. SURGEON: Tracey Mcdowell M.D. FISH BAIT PROCESSING SUPERVISOR: None. ANESTHESIA: General with endotracheal tube. ANESTHESIOLOGIST: Jeremiah Childs M.D. INDICATION: This is a 47-year-old obese male, who presented with abdominal pain for about two to three days. He stated that the pain was located at right lower quadrant and associated with nausea and vomiting. Physical examination showed tenderness at the left lower quadrant with guarding. CBC was 18,400 with a left shift. CAT scan of the abdomen was interpreted as acute appendicitis, probably perforated. DESCRIPTION OF PROCEDURE: The patient was placed supine on the operating table and after general anesthesia with endotracheal tube, the abdomen was properly prepped and draped. Initially, a small incision was made above the umbilicus through which a Veress needle was introduced into the intraperitoneal cavity. This cavity was insufflated up to 15 mmHg and the Veress needle was removed and a 5 mm trocar was placed in the intraperitoneal cavity through the incision above the umbilicus. Laparoscope and camera was introduced into the intraperitoneal cavity through the trocar above the umbilicus. Under direct vision, a 5 mm trocar was placed at the suprapubic area and a 12 mm trocar was placed at the left lower quadrant of the abdomen. Initially, a rapid exploration was performed, which was very difficult as the patient is very fat. The patient is obese and he has a large amount of fat in the abdomen. At any rate, finally the exploration of the right lower quadrant cavity was performed. At this area, a very large inflammatory mass was identified. This mass was gradually isolated and dissected and it was noticed that the mass was appendix with the preperitoneal fat and probably an abscess and this mass was about the size of a fist. A blunt dissection was performed and apparently, the dissection was directed toward the cecum, but there was too much fat and I was unable to see the base of the appendix and during dissection, the started rolling down and finally the appendix avulsed. As the base was not very clear and I did not want to take the chance, the decision was made to perform an open appendectomy. The trocars were removed and an oblique incision was given at the right lower quadrant and was carried sharply through the subcutaneous tissue, Tariq fascia, and aponeurosis of the external oblique. The muscles were split. The peritoneum was then incised and the intraperitoneal cavity was entered. In entering this area, the distal part of the appendix, which was avulsed was identified and removed and then further exploration was performed deep in the right lower quadrant and finally, the remnant of the appendix was identified and isolated. The base of the appendix was seen and was ligated and transected with the help of the RUPAL stapler, but I was not sure if the stapler functioned appropriately. So to make sure about the integrity of the area, the stump was oversewn with #0 Vicryl. During the this area, a very large fecalith was identified, which was removed. After this, the right lower quadrant cavity and pelvis was thoroughly irrigated with antibiotic solution. A Praveen drain was placed in the pelvis and was brought under the cecum and then it was brought out from a separate stab wound at the right side of the abdomen. After this, the posterior fascia and the peritoneum was approximated with running suture of #1 Vicryl. The muscles were approximated with multiple sutures of #1 Vicryl and the aponeurosis of the external oblique was approximated with running suture of #1 Vicryl. The incisions were approximated with sterile skin thea and the incisions were infiltrated with total of 50 mL of Marcaine 0.25%. The patient tolerated the procedure very well and was transferred to recovery room in stable condition and extubated. The sponge and needle count correct. Estimated blood loss 100 mL. Condition of the patient at the end of the procedure is stable. Tracey Mcdowell M.D. DR: MEREDITH JOB#: [id number] CC:
[2017-08-07] VITALS: BP 129/89
[2017-08-07 04:00] VITALS: BP 110/80
[2017-08-07] MEDS: D5 1/2NS w/KCl 20mEq 1,000 ML IV SCH ×2 (05:06→15:28)
[2017-08-07] MEDS: HYDROmorphone 1mg/ml Carpuject IVP PRN ×3 (06:03→21:52)
[2017-08-07 08:10] VITALS: BP 119/79
[2017-08-07] MEDS: Pantoprazole Inj IVP SCH (08:32)
[2017-08-07] MEDS: Heparin 5000 units/ml inj SUBQ SCH ×2 (08:41→21:26)
[2017-08-07 09:25] LABS: HEMATOCRIT 40.2 % (42.0-52.0); HEMOGLOBIN 13.3 G/DL (14.2-18.0); MEAN CORPUSCULAR VOLUME 92 FL (80-99); PLATELET COUNT 239 K/UL (150-450); RED BLOOD COUNT 4.37 M/UL (4.70-6.10); RED CELL DISTRIBUTION WIDTH 13.6 % (11.6-14.8); WHITE BLOOD COUNT 18.1 K/UL (4.8-10.8)
--- NOTE | 2017-08-07 09:30 | 48 Hour Post Anesthesia Eval ---
Post Anesthesia Evaluation Procedure: Open appendectomy Date of Evaluation: Aug 07, 2017 Time of Evaluation: 06:23 Blood Pressure Systolic: 110 0: 80 Pulse Rate: 107 Respiratory Rate: 20 Temperature (Fahrenheit): 98.4 O2 Sat by Pulse Oximetry: 91 Airway: patent Nausea: No Vomiting: No Pain Intensity: 3 Hydration Status: adequate Cardiopulmonary Status: Stable Mental Status/LOC: patient returned to baseline Follow-up Care/Observations: 0 Post-Anesthesia Complications: 0 Follow-up care needed: N/A Gustavo Beverly MD Aug 07, 2017 09:30
[2017-08-07 09:43] LABS: ALANINE AMINOTRANSFERASE 23 U/L (12-78); ALBUMIN 2.5 G/DL (3.4-5.0); ALBUMIN/GLOBULIN RATIO 0.6 (1.0-2.7); ALKALINE PHOSPHATASE 74 U/L (46-116); AMYLASE 72 U/L (25-115); ANION GAP 8 mmol/L (5-15); ASPARTATE AMINO TRANSFERASE 16 U/L (15-37); BILIRUBIN,TOTAL 0.8 MG/DL (0.2-1.0); BLOOD UREA NITROGEN 18 mg/dL (7-18); CALCIUM 7.6 MG/DL (8.5-10.1); CARBON DIOXIDE 26 MMOL/L (21-32); CHLORIDE 102 MMOL/L (98-107); CREATININE 1.2 MG/DL (0.55-1.30); SODIUM 136 MMOL/L (136-145)
[2017-08-07 11:51] VITALS: BP 129/71
[2017-08-07] MEDS ORDERED: Piperacillin/Tazobactam 4.5 GM in D5W 110 ML IVPB SCH (12:00)
[2017-08-07] MEDS: Piperacillin/Tazobactam 4.5 GM in NS 110 ML IVPB SCH ×2 (13:02→21:24)
--- NOTE | 2017-08-07 14:35 | GI Progress Note ---
Assessment/Plan Problems: (1) Perforated appendicitis ICD Codes: K35.2 - Acute appendicitis with generalized peritonitis SNOMED: 09910114 (2) Abdominal pain ICD Codes: R10.9 - Unspecified abdominal pain SNOMED: 39202262 Qualifiers: Qualified Codes: R10.11 - Right upper quadrant pain Status: progressing Status Narrative Discussed with Dr. Samano. Assessment/Plan fu surgical recs diet per surgery pain mgmt electrolyte replacement abx fu labs Subjective Subjective pain improving Objective Last 24 Hour Vital Signs Date Time Temp Pulse Resp B/P (MAP) Pulse Ox O2 Delivery O2 Flow Rate FiO2 08/07/17 11:51 98.2 92 20 129/71 96 08/07/17 09:30 107 20 91 08/07/17 08:10 97.7 91 21 119/79 96 08/07/17 08:10 Nasal Cannula 2.0 08/07/17 06:10 97 96 Nasal Cannula 2.0 08/07/17 04:00 98.4 107 20 110/80 91 08/07/17 00:00 98.2 102 18 129/89 94 Room Air 08/06/17 22:14 102 96 Nasal Cannula 2.0 08/06/17 21:00 98.4 102 20 126/82 92 Room Air 102 08/06/17 17:10 98.5 08/06/17 16:00 98.4 107 18 135/93 92 Room Air Intake and Output 08/06/17 08/07/17 19:00 07:00 Intake Total 1150 ml 100 ml Output Total 25 ml Balance 1150 ml 75 ml IV Total 1150 ml 100 ml Output Drainage Total 25 ml # Voids 2 2 Laboratory Tests Test 08/07/17 08:10 White Blood Count 18.1 K/UL (4.8-10.8) H Red Blood Count 4.37 M/UL (4.70-6.10) L Hemoglobin 13.3 G/DL (14.2-18.0) L Hematocrit 40.2 % (42.0-52.0) L Mean Corpuscular Volume 92 FL (80-99) Mean Corpuscular Hemoglobin 30.5 PG (27.0-31.0) Mean Corpuscular Hemoglobin Concent 33.1 G/DL (32.0-36.0) Red Cell Distribution Width 13.6 % (11.6-14.8) Platelet Count 239 K/UL (150-450) Mean Platelet Volume 6.5 FL (6.5-10.1) Neutrophils (%) (Auto) % (45.0-75.0) Lymphocytes (%) (Auto) % (20.0-45.0) Monocytes (%) (Auto) % (1.0-10.0) Eosinophils (%) (Auto) % (0.0-3.0) Basophils (%) (Auto) % (0.0-2.0) Differential Total Cells Counted 100 Neutrophils % (Manual) 81 % (45-75) H Lymphocytes % (Manual) 7 % (20-45) L Monocytes % (Manual) 11 % (1-10) H Eosinophils % (Manual) 0 % (0-3) Basophils % (Manual) 1 % (0-2) Band Neutrophils 0 % (0-8) Platelet Estimate Adequate Platelet Morphology Normal Activated Partial Thromboplast Time 35 SEC (23-33) H Sodium Level 136 MMOL/L (136-145) Potassium Level 4.0 MMOL/L (3.5-5.1) Chloride Level 102 MMOL/L (98-107) Carbon Dioxide Level 26 MMOL/L (21-32) Anion Gap 8 mmol/L (5-15) Blood Urea Nitrogen 18 mg/dL (7-18) Creatinine 1.2 MG/DL (0.55-1.30) Estimat Glomerular Filtration Rate > 60 mL/min (>60) Glucose Level 137 MG/DL (74-106) H Calcium Level 7.6 MG/DL (8.5-10.1) L Total Bilirubin 0.8 MG/DL (0.2-1.0) Aspartate Amino Transf (AST/SGOT) 16 U/L (15-37) Alanine Aminotransferase (ALT/SGPT) 23 U/L (12-78) Alkaline Phosphatase 74 U/L (46-116) Total Protein 6.8 G/DL (6.4-8.2) Albumin 2.5 G/DL (3.4-5.0) L Globulin 4.3 g/dL Albumin/Globulin Ratio 0.6 (1.0-2.7) L Amylase Level 72 U/L (25-115) Lipase 113 U/L (73-393) Height (Feet): 5 Height (Inches): 3.00 Weight (Pounds): 207 General Appearance: WD/WN, no apparent distress, alert Cardiovascular: normal rate Respiratory/Chest: normal breath sounds, no respiratory distress Abdominal Exam: normal bowel sounds, non tender, soft, incision site Extremities: normal range of motion, non-tender Hien Smith N.P. Aug 07, 2017 14:35
--- NOTE | 2017-08-07 14:42 | Pulmonology Progress Note ---
Assessment/Plan Problems: (1) Perforated appendicitis Assessment/Plan npo iv abx check cultures pain management Subjective ROS Limited/Unobtainable: No Constitutional: Reports: no symptoms HEENT: Repors: no symptoms Respiratory: Reports: no symptoms Allergies: Coded Allergies: No Known Allergies (Unverified , 08/05/17) Objective Last 24 Hour Vital Signs Date Time Temp Pulse Resp B/P (MAP) Pulse Ox O2 Delivery O2 Flow Rate FiO2 08/07/17 11:51 98.2 92 20 129/71 96 08/07/17 09:30 107 20 91 08/07/17 08:10 97.7 91 21 119/79 96 08/07/17 08:10 Nasal Cannula 2.0 08/07/17 06:10 97 96 Nasal Cannula 2.0 08/07/17 04:00 98.4 107 20 110/80 91 08/07/17 00:00 98.2 102 18 129/89 94 Room Air 08/06/17 22:14 102 96 Nasal Cannula 2.0 08/06/17 21:00 98.4 102 20 126/82 92 Room Air 102 08/06/17 17:10 98.5 08/06/17 16:00 98.4 107 18 135/93 92 Room Air Intake and Output 08/06/17 08/07/17 19:00 07:00 Intake Total 1150 ml 100 ml Output Total 25 ml Balance 1150 ml 75 ml IV Total 1150 ml 100 ml Output Drainage Total 25 ml # Voids 2 2 Objective General Appearance: no acute distress HEENT: normocephalic, atraumatic, anicteric, mucous membranes moist Respiratory/Chest: lungs clear, no respiratory distress, no accessory muscle use Cardiovascular: regular rhythm, SR on tele , R groin [place]-cath , intact Abdomen: normal bowel sounds, soft, non tender - soft, GEOFF in place Extremities: no edema Neurologic/Psychiatric: no motor/sensory deficits, alert, oriented x 3, responsive Musculoskeletal: normal muscle bulk Laboratory Tests 08/07/17 08:10: White Blood Count 18.1H, Red Blood Count 4.37L, Hemoglobin 13.3L, Hematocrit 40.2L, Mean Corpuscular Volume 92, Mean Corpuscular Hemoglobin 30.5, Mean Corpuscular Hemoglobin Concent 33.1, Red Cell Distribution Width 13.6, Platelet Count 239, Mean Platelet Volume 6.5, Neutrophils (%) (Auto) , Lymphocytes (%) ( Auto) , Monocytes (%) (Auto) , Eosinophils (%) (Auto) , Basophils (%) (Auto) , Differential Total Cells Counted 100, Neutrophils % (Manual) 81H, Lymphocytes % (Manual) 7L, Monocytes % (Manual) 11H, Eosinophils % (Manual) 0, Basophils % ( Manual) 1, Band Neutrophils 0, Platelet Estimate Adequate, Platelet Morphology Normal, Activated Partial Thromboplast Time 35H, Sodium Level 136, Potassium Level 4.0, Chloride Level 102, Carbon Dioxide Level 26, Anion Gap 8, Blood Urea Nitrogen 18, Creatinine 1.2, Estimat Glomerular Filtration Rate > 60, Glucose Level 137H, Calcium Level 7.6L, Total Bilirubin 0.8, Aspartate Amino Transf (AST /SGOT) 16, Alanine Aminotransferase (ALT/SGPT) 23, Alkaline Phosphatase 74, Total Protein 6.8, Albumin 2.5L, Globulin 4.3, Albumin/Globulin Ratio 0.6L, Amylase Level 72, Lipase 113 Current Medications Medications (Trade) Dose Ordered Sig/Vinh Route PRN Reason Start Time Stop Time Status Last Admin Dose Admin Acetaminophen (Tylenol) 650 mg Q4H PRN ORAL fever 08/06/17 05:15 09/05/17 05:14 Acetaminophen (Tylenol) 650 mg Q4H PRN RECTAL Mild Pain (Pain Scale 1-3) 08/06/17 07:00 09/05/17 06:59 Dextrose (Dextrose 50%) STAT PRN IV Hypoglycemia 08/06/17 05:15 09/05/17 05:14 Dextrose/ Electrolytes 1,000 ml @ 100 mls/hr Q10H IV 08/06/17 09:00 09/05/17 08:59 08/07/17 05:06 Diphenhydramine HCl (Benadryl) 25 mg Q6H PRN ORAL Itching/Pruritis 08/06/17 05:15 09/05/17 05:14 Heparin Sodium (Porcine) (Heparin 5000 units/ml) 5,000 units EVERY 12 HOURS SUBQ 08/06/17 09:00 09/05/17 08:59 08/07/17 08:41 Hydromorphone HCl (Dilaudid) 1 mg Q4H PRN IVP MOD-SEVERE PAIN 4-10 08/06/17 07:00 08/13/17 06:59 08/07/17 06:03 Nitroglycerin (Ntg) 0.4 mg Q5M X 3 DOSES PRN SL Prn Chest Pain 08/06/17 05:15 09/05/17 05:14 Ondansetron HCl (Zofran) 4 mg Q6H PRN IVP Nausea & Vomiting 08/06/17 05:15 09/05/17 05:14 Pantoprazole (Protonix) 40 mg DAILY IVP 08/06/17 09:00 09/05/17 08:59 08/07/17 08:32 Piperacillin Sod/ Tazobactam Sod 4.5 gm/Sodium Chloride 110 ml @ 27.5 mls/hr EVERY 8 HOURS IVPB 08/07/17 12:30 08/14/17 12:29 08/07/17 13:02 ATILIO WONG Aug 07, 2017 14:42
--- NOTE | 2017-08-07 15:42 | Infectious Diseases Prog Note ---
Assessment/Plan Assessment/Plan Abx: Zosyn 08/06- IV Gentamicin 08/06- Assessment: Acute perforated appendicitis s/p open appendectomy 08/06 -OR findings: very large inflammatory mass identified. performed. At this area, a This mass was gradually isolated and dissected and it was noticed that the mass was . A blunt dissection was performed and apparently, the dissection was directed toward the cecum, but there was too much fat and I was unable to see the base of the appendix and during dissection, the started rolling down and finally the appendix avulsed. As the base was not very clear and I did not want to take the chance, the decision was made to perform an open appendectomy. The trocars were removed and an oblique incision was given at the right lower quadrant and was carried sharply through the subcutaneous tissue, Tariq fascia, and aponeurosis of the external oblique. The muscles were split. The peritoneum was then incised and the intraperitoneal cavity was entered. In entering this area, the distal part of the appendix, which was avulsed was identified and removed and then further exploration was performed deep in the right lower quadrant and finally, the remnant of the appendix was identified and isolated. The base of the appendix was seen and was ligated and transected with the help of the RUPAL stapler, but I was not sure if the stapler functioned appropriately. So to make sure about the integrity of the area, the stump was oversewn with #0 Vicryl. During the this area, a very large fecalith was identified, which was removed. After this, the right lower quadrant cavity and pelvis was thoroughly irrigated with antibiotic solution. A Praveen drain was placed in the pelvis and was brought under the cecum and then it was brought out from a separate stab wound at the right side of the abdomen. After this, the posterior fascia and the peritoneum was approximated with running suture of #1 Vicryl. The muscles were approximated with multiple sutures of #1 Vicryl and the aponeurosis of the external oblique was approximated with running suture of #1 Vicryl. The incisions were approximated with sterile skin thea and the incisions were infiltrated with total of 50 mL of Marcaine 0.25%. The patient tolerated the procedure very well and was transferred to recovery room in stable condition and extubated. The sponge and needle count correct. Estimated blood loss 100 mL. Condition of the patient at the end of the procedure is stable. Leukocytosis- 2ry to above -u/a no pyuria Plan: -Continue Ceftriaxone and Flagyl #2/5-7 ; upon discharge PO Cefdinir and Flagyl -2/6 SP Zosyn and Gentamicin #1 -Monitor CBC/BMP, temperatures -wound care -sx f/u Thank you for this consultation. Will continue to follow along with you. Discussed with RN Subjective Allergies: Coded Allergies: No Known Allergies (Unverified , 08/05/17) Subjective afebrile persistent leukocytosis at 18 Objective Vital Signs Last 24 Hour Vital Signs Date Time Temp Pulse Resp B/P (MAP) Pulse Ox O2 Delivery O2 Flow Rate FiO2 08/07/17 11:51 98.2 92 20 129/71 96 08/07/17 09:30 107 20 91 08/07/17 08:10 97.7 91 21 119/79 96 08/07/17 08:10 Nasal Cannula 2.0 08/07/17 06:10 97 96 Nasal Cannula 2.0 08/07/17 04:00 98.4 107 20 110/80 91 08/07/17 00:00 98.2 102 18 129/89 94 Room Air 08/06/17 22:14 102 96 Nasal Cannula 2.0 08/06/17 21:00 98.4 102 20 126/82 92 Room Air 102 08/06/17 17:10 98.5 08/06/17 16:00 98.4 107 18 135/93 92 Room Air Height (Feet): 5 Height (Inches): 3.00 Weight (Pounds): 207 Laboratory Tests Test 08/07/17 08:10 White Blood Count 18.1 K/UL (4.8-10.8) H Red Blood Count 4.37 M/UL (4.70-6.10) L Hemoglobin 13.3 G/DL (14.2-18.0) L Hematocrit 40.2 % (42.0-52.0) L Mean Corpuscular Volume 92 FL (80-99) Mean Corpuscular Hemoglobin 30.5 PG (27.0-31.0) Mean Corpuscular Hemoglobin Concent 33.1 G/DL (32.0-36.0) Red Cell Distribution Width 13.6 % (11.6-14.8) Platelet Count 239 K/UL (150-450) Mean Platelet Volume 6.5 FL (6.5-10.1) Neutrophils (%) (Auto) % (45.0-75.0) Lymphocytes (%) (Auto) % (20.0-45.0) Monocytes (%) (Auto) % (1.0-10.0) Eosinophils (%) (Auto) % (0.0-3.0) Basophils (%) (Auto) % (0.0-2.0) Differential Total Cells Counted 100 Neutrophils % (Manual) 81 % (45-75) H Lymphocytes % (Manual) 7 % (20-45) L Monocytes % (Manual) 11 % (1-10) H Eosinophils % (Manual) 0 % (0-3) Basophils % (Manual) 1 % (0-2) Band Neutrophils 0 % (0-8) Platelet Estimate Adequate Platelet Morphology Normal Activated Partial Thromboplast Time 35 SEC (23-33) H Sodium Level 136 MMOL/L (136-145) Potassium Level 4.0 MMOL/L (3.5-5.1) Chloride Level 102 MMOL/L (98-107) Carbon Dioxide Level 26 MMOL/L (21-32) Anion Gap 8 mmol/L (5-15) Blood Urea Nitrogen 18 mg/dL (7-18) Creatinine 1.2 MG/DL (0.55-1.30) Estimat Glomerular Filtration Rate > 60 mL/min (>60) Glucose Level 137 MG/DL (74-106) H Calcium Level 7.6 MG/DL (8.5-10.1) L Total Bilirubin 0.8 MG/DL (0.2-1.0) Aspartate Amino Transf (AST/SGOT) 16 U/L (15-37) Alanine Aminotransferase (ALT/SGPT) 23 U/L (12-78) Alkaline Phosphatase 74 U/L (46-116) Total Protein 6.8 G/DL (6.4-8.2) Albumin 2.5 G/DL (3.4-5.0) L Globulin 4.3 g/dL Albumin/Globulin Ratio 0.6 (1.0-2.7) L Amylase Level 72 U/L (25-115) Lipase 113 U/L (73-393) Current Medications Medications (Trade) Dose Ordered Sig/Vinh Route PRN Reason Start Time Stop Time Status Last Admin Dose Admin Acetaminophen (Tylenol) 650 mg Q4H PRN ORAL fever 08/06/17 05:15 09/05/17 05:14 Acetaminophen (Tylenol) 650 mg Q4H PRN RECTAL Mild Pain (Pain Scale 1-3) 08/06/17 07:00 09/05/17 06:59 Dextrose (Dextrose 50%) STAT PRN IV Hypoglycemia 08/06/17 05:15 09/05/17 05:14 Dextrose/ Electrolytes 1,000 ml @ 100 mls/hr Q10H IV 08/06/17 09:00 09/05/17 08:59 08/07/17 15:28 Diphenhydramine HCl (Benadryl) 25 mg Q6H PRN ORAL Itching/Pruritis 08/06/17 05:15 09/05/17 05:14 Heparin Sodium (Porcine) (Heparin 5000 units/ml) 5,000 units EVERY 12 HOURS SUBQ 08/06/17 09:00 09/05/17 08:59 08/07/17 08:41 Hydromorphone HCl (Dilaudid) 1 mg Q4H PRN IVP MOD-SEVERE PAIN 4-10 08/06/17 07:00 08/13/17 06:59 08/07/17 15:30 Nitroglycerin (Ntg) 0.4 mg Q5M X 3 DOSES PRN SL Prn Chest Pain 08/06/17 05:15 09/05/17 05:14 Ondansetron HCl (Zofran) 4 mg Q6H PRN IVP Nausea & Vomiting 08/06/17 05:15 09/05/17 05:14 Pantoprazole (Protonix) 40 mg DAILY IVP 08/06/17 09:00 09/05/17 08:59 08/07/17 08:32 Piperacillin Sod/ Tazobactam Sod 4.5 gm/Sodium Chloride 110 ml @ 27.5 mls/hr EVERY 8 HOURS IVPB 08/07/17 12:30 08/14/17 12:29 08/07/17 13:02 Rebekah East M.D. Aug 07, 2017 15:42
--- NOTE | 2017-08-07 15:54 | Infectious Diseases Prog Note ---
Assessment/Plan Assessment/Plan Assessment: Acute perforated appendicitis s/p open appendectomy 08/06 -OR findings: very large inflammatory mass identified: appendix with the preperitoneal fat and probably an abscess and this mass was about the size of a fist. Leukocytosis- 2ry to above; persistent -u/a no pyuria Plan: -Continue Ceftriaxone and Flagyl #2/5-7 ; upon discharge PO Cefdinir and Flagyl -2/6 SP Zosyn and Gentamicin #1 -Monitor CBC/BMP, temperatures; Trend WBC -wound care -sx f/u Thank you for this consultation. Will continue to follow along with you. Discussed with RN Subjective Allergies: Coded Allergies: No Known Allergies (Unverified , 08/05/17) Subjective afebrile persistent leukocytosis at 18 Objective Vital Signs Last 24 Hour Vital Signs Date Time Temp Pulse Resp B/P (MAP) Pulse Ox O2 Delivery O2 Flow Rate FiO2 08/07/17 11:51 98.2 92 20 129/71 96 08/07/17 09:30 107 20 91 08/07/17 08:10 97.7 91 21 119/79 96 08/07/17 08:10 Nasal Cannula 2.0 08/07/17 06:10 97 96 Nasal Cannula 2.0 08/07/17 04:00 98.4 107 20 110/80 91 08/07/17 00:00 98.2 102 18 129/89 94 Room Air 08/06/17 22:14 102 96 Nasal Cannula 2.0 08/06/17 21:00 98.4 102 20 126/82 92 Room Air 102 08/06/17 17:10 98.5 08/06/17 16:00 98.4 107 18 135/93 92 Room Air Height (Feet): 5 Height (Inches): 3.00 Weight (Pounds): 207 Objective General Appearance: normal inspection, well appearing, no apparent distress, alert,bese Head: normocephalic, atraumatic Eyes: bilateral eye PERRL, bilateral eye EOMI ENT: normal ENT inspection, hearing grossly normal, normal pharynx, no angioedema, normal voice, TMs + canals normal, uvula midline, moist mucus membranes Neck: normal inspection, full range of motion, supple, thyroid normal, no meningismus, no bony tend Respiratory: normal inspection, lungs clear, normal breath sounds, no rhonchi, no respiratory distress, no retraction, no accessory muscle use, no wheezing, speaking full sentences Cardiovascular : regular rate, rhythm, no edema, no JVD, normal capillary refill Gastrointestinal: surgical dressings and GEOFF drain in place Genitourinary: no CVA tenderness Musculoskeletal: normal inspection, back normal, normal range of motion, no calf tenderness, pelvis stable, Skin: normal inspection, normal color, no rash Laboratory Tests Test 08/07/17 08:10 White Blood Count 18.1 K/UL (4.8-10.8) H Red Blood Count 4.37 M/UL (4.70-6.10) L Hemoglobin 13.3 G/DL (14.2-18.0) L Hematocrit 40.2 % (42.0-52.0) L Mean Corpuscular Volume 92 FL (80-99) Mean Corpuscular Hemoglobin 30.5 PG (27.0-31.0) Mean Corpuscular Hemoglobin Concent 33.1 G/DL (32.0-36.0) Red Cell Distribution Width 13.6 % (11.6-14.8) Platelet Count 239 K/UL (150-450) Mean Platelet Volume 6.5 FL (6.5-10.1) Neutrophils (%) (Auto) % (45.0-75.0) Lymphocytes (%) (Auto) % (20.0-45.0) Monocytes (%) (Auto) % (1.0-10.0) Eosinophils (%) (Auto) % (0.0-3.0) Basophils (%) (Auto) % (0.0-2.0) Differential Total Cells Counted 100 Neutrophils % (Manual) 81 % (45-75) H Lymphocytes % (Manual) 7 % (20-45) L Monocytes % (Manual) 11 % (1-10) H Eosinophils % (Manual) 0 % (0-3) Basophils % (Manual) 1 % (0-2) Band Neutrophils 0 % (0-8) Platelet Estimate Adequate Platelet Morphology Normal Activated Partial Thromboplast Time 35 SEC (23-33) H Sodium Level 136 MMOL/L (136-145) Potassium Level 4.0 MMOL/L (3.5-5.1) Chloride Level 102 MMOL/L (98-107) Carbon Dioxide Level 26 MMOL/L (21-32) Anion Gap 8 mmol/L (5-15) Blood Urea Nitrogen 18 mg/dL (7-18) Creatinine 1.2 MG/DL (0.55-1.30) Estimat Glomerular Filtration Rate > 60 mL/min (>60) Glucose Level 137 MG/DL (74-106) H Calcium Level 7.6 MG/DL (8.5-10.1) L Total Bilirubin 0.8 MG/DL (0.2-1.0) Aspartate Amino Transf (AST/SGOT) 16 U/L (15-37) Alanine Aminotransferase (ALT/SGPT) 23 U/L (12-78) Alkaline Phosphatase 74 U/L (46-116) Total Protein 6.8 G/DL (6.4-8.2) Albumin 2.5 G/DL (3.4-5.0) L Globulin 4.3 g/dL Albumin/Globulin Ratio 0.6 (1.0-2.7) L Amylase Level 72 U/L (25-115) Lipase 113 U/L (73-393) Current Medications Medications (Trade) Dose Ordered Sig/Vinh Route PRN Reason Start Time Stop Time Status Last Admin Dose Admin Acetaminophen (Tylenol) 650 mg Q4H PRN ORAL fever 08/06/17 05:15 09/05/17 05:14 Acetaminophen (Tylenol) 650 mg Q4H PRN RECTAL Mild Pain (Pain Scale 1-3) 08/06/17 07:00 09/05/17 06:59 Dextrose (Dextrose 50%) STAT PRN IV Hypoglycemia 08/06/17 05:15 09/05/17 05:14 Dextrose/ Electrolytes 1,000 ml @ 100 mls/hr Q10H IV 08/06/17 09:00 09/05/17 08:59 08/07/17 15:28 Diphenhydramine HCl (Benadryl) 25 mg Q6H PRN ORAL Itching/Pruritis 08/06/17 05:15 09/05/17 05:14 Heparin Sodium (Porcine) (Heparin 5000 units/ml) 5,000 units EVERY 12 HOURS SUBQ 08/06/17 09:00 09/05/17 08:59 08/07/17 08:41 Hydromorphone HCl (Dilaudid) 1 mg Q4H PRN IVP MOD-SEVERE PAIN 4-10 08/06/17 07:00 08/13/17 06:59 08/07/17 15:30 Nitroglycerin (Ntg) 0.4 mg Q5M X 3 DOSES PRN SL Prn Chest Pain 08/06/17 05:15 09/05/17 05:14 Ondansetron HCl (Zofran) 4 mg Q6H PRN IVP Nausea & Vomiting 08/06/17 05:15 09/05/17 05:14 Pantoprazole (Protonix) 40 mg DAILY IVP 08/06/17 09:00 09/05/17 08:59 08/07/17 08:32 Piperacillin Sod/ Tazobactam Sod 4.5 gm/Sodium Chloride 110 ml @ 27.5 mls/hr EVERY 8 HOURS IVPB 08/07/17 12:30 08/14/17 12:29 08/07/17 13:02 Rebekah East M.D. Aug 07, 2017 15:54
[2017-08-07 16:08] VITALS: BP 132/72
--- NOTE | 2017-08-07 18:19 | General Surgery Progress Note ---
General Surgery-Progress Note Subjective Procedure Performed attempted lap appy open appendectomy Symptoms: improved Objective Last 24 Hour Vital Signs Date Time Temp Pulse Resp B/P (MAP) Pulse Ox O2 Delivery O2 Flow Rate FiO2 08/07/17 16:08 98.0 95 20 132/72 100 08/07/17 11:51 98.2 92 20 129/71 96 08/07/17 09:30 107 20 91 08/07/17 08:10 97.7 91 21 119/79 96 08/07/17 08:10 Nasal Cannula 2.0 08/07/17 06:10 97 96 Nasal Cannula 2.0 08/07/17 04:00 98.4 107 20 110/80 91 08/07/17 00:00 98.2 102 18 129/89 94 Room Air 08/06/17 22:14 102 96 Nasal Cannula 2.0 08/06/17 21:00 98.4 102 20 126/82 92 Room Air 102 I&O Intake and Output 08/06/17 08/07/17 19:00 07:00 Intake Total 1150 ml 100 ml Output Total 25 ml Balance 1150 ml 75 ml IV Total 1150 ml 100 ml Output Drainage Total 25 ml # Voids 2 2 Drains: keri Respiratory: clear Abdomen: soft, tenderness, absent bowel sounds Extremities: no tenderness Laboratory Tests Test 08/07/17 08:10 White Blood Count 18.1 K/UL (4.8-10.8) H Red Blood Count 4.37 M/UL (4.70-6.10) L Hemoglobin 13.3 G/DL (14.2-18.0) L Hematocrit 40.2 % (42.0-52.0) L Mean Corpuscular Volume 92 FL (80-99) Mean Corpuscular Hemoglobin 30.5 PG (27.0-31.0) Mean Corpuscular Hemoglobin Concent 33.1 G/DL (32.0-36.0) Red Cell Distribution Width 13.6 % (11.6-14.8) Platelet Count 239 K/UL (150-450) Mean Platelet Volume 6.5 FL (6.5-10.1) Neutrophils (%) (Auto) % (45.0-75.0) Lymphocytes (%) (Auto) % (20.0-45.0) Monocytes (%) (Auto) % (1.0-10.0) Eosinophils (%) (Auto) % (0.0-3.0) Basophils (%) (Auto) % (0.0-2.0) Differential Total Cells Counted 100 Neutrophils % (Manual) 81 % (45-75) H Lymphocytes % (Manual) 7 % (20-45) L Monocytes % (Manual) 11 % (1-10) H Eosinophils % (Manual) 0 % (0-3) Basophils % (Manual) 1 % (0-2) Band Neutrophils 0 % (0-8) Platelet Estimate Adequate Platelet Morphology Normal Activated Partial Thromboplast Time 35 SEC (23-33) H Sodium Level 136 MMOL/L (136-145) Potassium Level 4.0 MMOL/L (3.5-5.1) Chloride Level 102 MMOL/L (98-107) Carbon Dioxide Level 26 MMOL/L (21-32) Anion Gap 8 mmol/L (5-15) Blood Urea Nitrogen 18 mg/dL (7-18) Creatinine 1.2 MG/DL (0.55-1.30) Estimat Glomerular Filtration Rate > 60 mL/min (>60) Glucose Level 137 MG/DL (74-106) H Calcium Level 7.6 MG/DL (8.5-10.1) L Total Bilirubin 0.8 MG/DL (0.2-1.0) Aspartate Amino Transf (AST/SGOT) 16 U/L (15-37) Alanine Aminotransferase (ALT/SGPT) 23 U/L (12-78) Alkaline Phosphatase 74 U/L (46-116) Total Protein 6.8 G/DL (6.4-8.2) Albumin 2.5 G/DL (3.4-5.0) L Globulin 4.3 g/dL Albumin/Globulin Ratio 0.6 (1.0-2.7) L Amylase Level 72 U/L (25-115) Lipase 113 U/L (73-393) Assessment Post-op Diagnosis acute perforated appendicitis Plan Additional Comments continue as before SAMMIE LOO Aug 07, 2017 18:19
[2017-08-07 20:00] VITALS: BP 125/81
[2017-08-08 00:43] VITALS: BP 128/80
[2017-08-08] MEDS: D5 1/2NS w/KCl 20mEq 1,000 ML IV SCH ×3 (01:12→21:00)
[2017-08-08] MEDS: HYDROmorphone 1mg/ml Carpuject IVP PRN ×3 (01:52→11:43)
[2017-08-08 04:37] VITALS: BP 135/84
[2017-08-08] MEDS: Piperacillin/Tazobactam 4.5 GM in NS 110 ML IVPB SCH ×3 (05:52→21:31)
[2017-08-08 07:46] LABS: BASOPHILS % (AUTO) 0.8 % (0.0-2.0); HEMATOCRIT 39.3 % (42.0-52.0); HEMOGLOBIN 13.7 G/DL (14.2-18.0); LYMPHOCYTES % (AUTO) 9.9 % (20.0-45.0); MEAN CORPUSCULAR VOLUME 92 FL (80-99); MONOCYTES % (AUTO) 8.5 % (1.0-10.0); NEUTROPHILS % (AUTO) 79.8 % (45.0-75.0); PLATELET COUNT 277 K/UL (150-450); RED BLOOD COUNT 4.29 M/UL (4.70-6.10); RED CELL DISTRIBUTION WIDTH 13.4 % (11.6-14.8); WHITE BLOOD COUNT 15.4 K/UL (4.8-10.8)
[2017-08-08 08:00] VITALS: BP 139/84
[2017-08-08 08:32] LABS: ANION GAP 9 mmol/L (5-15); BLOOD UREA NITROGEN 15 mg/dL (7-18); CALCIUM 8.2 MG/DL (8.5-10.1); CARBON DIOXIDE 25 MMOL/L (21-32); CHLORIDE 102 MMOL/L (98-107); PHOSPHORUS 2.4 MG/DL (2.5-4.9); POTASSIUM 3.9 MMOL/L (3.5-5.1); SODIUM 136 MMOL/L (136-145)
[2017-08-08] MEDS: Pantoprazole Inj IVP SCH (08:45)
[2017-08-08] MEDS: Heparin 5000 units/ml inj SUBQ SCH ×2 (08:53→21:33)
--- NOTE | 2017-08-08 10:39 | GI Progress Note ---
Assessment/Plan Problems: (1) Perforated appendicitis ICD Codes: K35.2 - Acute appendicitis with generalized peritonitis SNOMED: 37217312 (2) Abdominal pain ICD Codes: R10.9 - Unspecified abdominal pain SNOMED: 08260387 Qualifiers: Qualified Codes: R10.11 - Right upper quadrant pain Status: unchanged Status Narrative Discussed with Dr. Samano. Assessment/Plan fu surgical recs diet per surgery - will begin bowel regime when patient PO pain mgmt electrolyte replacement abx fu labs Subjective Subjective pain improving passing gas ambulates to restroom constipated Objective Last 24 Hour Vital Signs Date Time Temp Pulse Resp B/P (MAP) Pulse Ox O2 Delivery O2 Flow Rate FiO2 08/08/17 08:00 98.3 89 19 139/84 96 08/08/17 04:37 98.2 88 17 135/84 96 08/08/17 00:43 97.4 95 19 128/80 100 08/07/17 20:00 98.0 98 19 125/81 95 08/07/17 16:08 Nasal Cannula 2.0 08/07/17 16:08 98.0 95 20 132/72 100 08/07/17 11:51 Nasal Cannula 2.0 08/07/17 11:51 98.2 92 20 129/71 96 Intake and Output 08/07/17 08/08/17 19:00 07:00 Intake Total 1210.0 ml Output Total 10 ml 10 ml Balance 1200.0 ml -10 ml IV Total 1210.0 ml Output Drainage Total 10 ml 10 ml Laboratory Tests Test 08/08/17 06:12 White Blood Count 15.4 K/UL (4.8-10.8) H Red Blood Count 4.29 M/UL (4.70-6.10) L Hemoglobin 13.7 G/DL (14.2-18.0) L Hematocrit 39.3 % (42.0-52.0) L Mean Corpuscular Volume 92 FL (80-99) Mean Corpuscular Hemoglobin 31.9 PG (27.0-31.0) H Mean Corpuscular Hemoglobin Concent 34.8 G/DL (32.0-36.0) Red Cell Distribution Width 13.4 % (11.6-14.8) Platelet Count 277 K/UL (150-450) Mean Platelet Volume 7.0 FL (6.5-10.1) Neutrophils (%) (Auto) 79.8 % (45.0-75.0) H Lymphocytes (%) (Auto) 9.9 % (20.0-45.0) L Monocytes (%) (Auto) 8.5 % (1.0-10.0) Eosinophils (%) (Auto) 1.0 % (0.0-3.0) Basophils (%) (Auto) 0.8 % (0.0-2.0) Sodium Level 136 MMOL/L (136-145) Potassium Level 3.9 MMOL/L (3.5-5.1) Chloride Level 102 MMOL/L (98-107) Carbon Dioxide Level 25 MMOL/L (21-32) Anion Gap 9 mmol/L (5-15) Blood Urea Nitrogen 15 mg/dL (7-18) Creatinine 1.0 MG/DL (0.55-1.30) Estimat Glomerular Filtration Rate > 60 mL/min (>60) Glucose Level 112 MG/DL (74-106) H Calcium Level 8.2 MG/DL (8.5-10.1) L Phosphorus Level 2.4 MG/DL (2.5-4.9) L Magnesium Level 2.2 MG/DL (1.8-2.4) Height (Feet): 5 Height (Inches): 3.00 Weight (Pounds): 207 General Appearance: WD/WN, no apparent distress, alert Cardiovascular: normal rate Respiratory/Chest: normal breath sounds, no respiratory distress Abdominal Exam: normal bowel sounds, non tender, soft, incision site Extremities: normal range of motion, non-tender Hien Smith N.P. Aug 08, 2017 10:39
[2017-08-08 12:00] VITALS: BP 131/84
[2017-08-08] MEDS ORDERED: Sodium Phosphate 15 MM in NS 275 ML IVPB ONE (12:00)
[2017-08-08 16:00] VITALS: BP 127/84
--- NOTE | 2017-08-08 16:13 | General Surgery Progress Note ---
General Surgery-Progress Note Subjective Procedure Performed attempted lap appy open appendectomy Symptoms: improved, passing flatus Objective Last 24 Hour Vital Signs Date Time Temp Pulse Resp B/P (MAP) Pulse Ox O2 Delivery O2 Flow Rate FiO2 08/08/17 08:00 98.3 89 19 139/84 96 08/08/17 04:37 98.2 88 17 135/84 96 08/08/17 00:43 97.4 95 19 128/80 100 08/07/17 20:00 98.0 98 19 125/81 95 I&O Intake and Output 08/07/17 08/08/17 19:00 07:00 Intake Total 1210.0 ml Output Total 10 ml 10 ml Balance 1200.0 ml -10 ml IV Total 1210.0 ml Output Drainage Total 10 ml 10 ml Dressing: dry Wound: clean Drains: keri Respiratory: clear Abdomen: non-tender, present bowel sounds Extremities: no tenderness Laboratory Tests Test 08/08/17 06:12 White Blood Count 15.4 K/UL (4.8-10.8) H Red Blood Count 4.29 M/UL (4.70-6.10) L Hemoglobin 13.7 G/DL (14.2-18.0) L Hematocrit 39.3 % (42.0-52.0) L Mean Corpuscular Volume 92 FL (80-99) Mean Corpuscular Hemoglobin 31.9 PG (27.0-31.0) H Mean Corpuscular Hemoglobin Concent 34.8 G/DL (32.0-36.0) Red Cell Distribution Width 13.4 % (11.6-14.8) Platelet Count 277 K/UL (150-450) Mean Platelet Volume 7.0 FL (6.5-10.1) Neutrophils (%) (Auto) 79.8 % (45.0-75.0) H Lymphocytes (%) (Auto) 9.9 % (20.0-45.0) L Monocytes (%) (Auto) 8.5 % (1.0-10.0) Eosinophils (%) (Auto) 1.0 % (0.0-3.0) Basophils (%) (Auto) 0.8 % (0.0-2.0) Sodium Level 136 MMOL/L (136-145) Potassium Level 3.9 MMOL/L (3.5-5.1) Chloride Level 102 MMOL/L (98-107) Carbon Dioxide Level 25 MMOL/L (21-32) Anion Gap 9 mmol/L (5-15) Blood Urea Nitrogen 15 mg/dL (7-18) Creatinine 1.0 MG/DL (0.55-1.30) Estimat Glomerular Filtration Rate > 60 mL/min (>60) Glucose Level 112 MG/DL (74-106) H Calcium Level 8.2 MG/DL (8.5-10.1) L Phosphorus Level 2.4 MG/DL (2.5-4.9) L Magnesium Level 2.2 MG/DL (1.8-2.4) Assessment Post-op Diagnosis acute perforated appendicitis Plan Additional Comments continue IV Antibiotics SAMMIE LOO Aug 08, 2017 16:13
[2017-08-08] MEDS: Docusate Sod/Senna tab ORAL SCH (18:08)
[2017-08-08 20:00] VITALS: BP 112/74
--- NOTE | 2017-08-08 23:20 | Pulmonology Progress Note ---
Assessment/Plan Problems: (1) Perforated appendicitis Assessment/Plan f/u wbc, f..u temp npo iv abx check cultures pain management Subjective ROS Limited/Unobtainable: No Constitutional: Reports: no symptoms HEENT: Repors: no symptoms Respiratory: Reports: no symptoms Allergies: Coded Allergies: No Known Allergies (Unverified , 08/05/17) Objective Last 24 Hour Vital Signs Date Time Temp Pulse Resp B/P (MAP) Pulse Ox O2 Delivery O2 Flow Rate FiO2 08/08/17 20:00 98.0 74 18 112/74 92 08/08/17 16:00 Room Air 08/08/17 16:00 98.9 97 19 127/84 97 08/08/17 12:00 Room Air 08/08/17 12:00 98.6 87 19 131/84 95 08/08/17 08:00 98.3 89 19 139/84 96 08/08/17 08:00 Room Air 08/08/17 04:37 98.2 88 17 135/84 96 08/08/17 00:43 97.4 95 19 128/80 100 Intake and Output 08/07/17 08/08/17 19:00 07:00 Intake Total 1210.0 ml Output Total 10 ml 10 ml Balance 1200.0 ml -10 ml IV Total 1210.0 ml Drainage Total 10 ml 10 ml Objective General Appearance: no acute distress HEENT: normocephalic, atraumatic, anicteric, mucous membranes moist Respiratory/Chest: lungs clear, no respiratory distress, no accessory muscle use Cardiovascular: regular rhythm, SR on tele , R groin [place]-cath , intact Abdomen: normal bowel sounds, soft, non tender - soft, GEOFF in place Extremities: no edema Neurologic/Psychiatric: no motor/sensory deficits, alert, oriented x 3, responsive Musculoskeletal: normal muscle bulk Laboratory Tests 08/08/17 06:12: White Blood Count 15.4H, Red Blood Count 4.29L, Hemoglobin 13.7L, Hematocrit 39.3L, Mean Corpuscular Volume 92, Mean Corpuscular Hemoglobin 31.9H, Mean Corpuscular Hemoglobin Concent 34.8, Red Cell Distribution Width 13.4, Platelet Count 277, Mean Platelet Volume 7.0, Neutrophils (%) (Auto) 79.8H, Lymphocytes ( %) (Auto) 9.9L, Monocytes (%) (Auto) 8.5, Eosinophils (%) (Auto) 1.0, Basophils (%) (Auto) 0.8, Sodium Level 136, Potassium Level 3.9, Chloride Level 102, Carbon Dioxide Level 25, Anion Gap 9, Blood Urea Nitrogen 15, Creatinine 1.0, Estimat Glomerular Filtration Rate > 60, Glucose Level 112H, Calcium Level 8.2L , Phosphorus Level 2.4L, Magnesium Level 2.2 Current Medications Medications (Trade) Dose Ordered Sig/Vinh Route PRN Reason Start Time Stop Time Status Last Admin Dose Admin Acetaminophen (Tylenol) 650 mg Q4H PRN ORAL fever 08/06/17 05:15 09/05/17 05:14 Acetaminophen (Tylenol) 650 mg Q4H PRN RECTAL Mild Pain (Pain Scale 1-3) 08/06/17 07:00 09/05/17 06:59 Dextrose (Dextrose 50%) STAT PRN IV Hypoglycemia 08/06/17 05:15 09/05/17 05:14 Dextrose/ Electrolytes 1,000 ml @ 100 mls/hr Q10H IV 08/06/17 09:00 09/05/17 08:59 08/08/17 21:00 Diphenhydramine HCl (Benadryl) 25 mg Q6H PRN ORAL Itching/Pruritis 08/06/17 05:15 09/05/17 05:14 Heparin Sodium (Porcine) (Heparin 5000 units/ml) 5,000 units EVERY 12 HOURS SUBQ 08/06/17 09:00 09/05/17 08:59 08/08/17 21:33 Hydromorphone HCl (Dilaudid) 1 mg Q4H PRN IVP MOD-SEVERE PAIN 4-10 08/06/17 07:00 08/13/17 06:59 08/08/17 11:43 Nitroglycerin (Ntg) 0.4 mg Q5M X 3 DOSES PRN SL Prn Chest Pain 08/06/17 05:15 09/05/17 05:14 Ondansetron HCl (Zofran) 4 mg Q6H PRN IVP Nausea & Vomiting 08/06/17 05:15 09/05/17 05:14 Pantoprazole (Protonix) 40 mg DAILY IVP 08/06/17 09:00 09/05/17 08:59 08/08/17 08:45 Piperacillin Sod/ Tazobactam Sod 4.5 gm/Sodium Chloride 110 ml @ 27.5 mls/hr EVERY 8 HOURS IVPB 08/07/17 12:30 08/14/17 12:29 08/08/17 21:31 Senna/Docusate Sodium (Jazzy-Colace) 1 tab TWICE A DAY ORAL 08/08/17 18:00 09/07/17 17:59 08/08/17 18:08 ATILIO WONG Aug 08, 2017 23:20
[2017-08-09] VITALS: BP 134/82
[2017-08-09 04:00] VITALS: BP 138/86
[2017-08-09] MEDS: Piperacillin/Tazobactam 4.5 GM in NS 110 ML IVPB SCH ×3 (05:28→21:19)
[2017-08-09] MEDS: D5 1/2NS w/KCl 20mEq 1,000 ML IV SCH (07:02)
[2017-08-09 08:00] VITALS: BP 133/90
[2017-08-09 08:27] LABS: BASOPHILS % (AUTO) 1.1 % (0.0-2.0); EOSINOPHILS % (AUTO) 3.5 % (0.0-3.0); HEMATOCRIT 37.7 % (42.0-52.0); HEMOGLOBIN 12.7 G/DL (14.2-18.0); LYMPHOCYTES % (AUTO) 16.2 % (20.0-45.0); MEAN CORPUSCULAR VOLUME 92 FL (80-99); MONOCYTES % (AUTO) 9.1 % (1.0-10.0); NEUTROPHILS % (AUTO) 70.1 % (45.0-75.0); PLATELET COUNT 293 K/UL (150-450); RED BLOOD COUNT 4.12 M/UL (4.70-6.10); RED CELL DISTRIBUTION WIDTH 13.4 % (11.6-14.8)
[2017-08-09 08:49] LABS: ANION GAP 5 mmol/L (5-15); BLOOD UREA NITROGEN 13 mg/dL (7-18); CALCIUM 8.1 MG/DL (8.5-10.1); CARBON DIOXIDE 27 MMOL/L (21-32); CHLORIDE 103 MMOL/L (98-107); CREATININE 0.9 MG/DL (0.55-1.30); PHOSPHORUS 2.6 MG/DL (2.5-4.9); POTASSIUM 3.5 MMOL/L (3.5-5.1); SODIUM 135 MMOL/L (136-145)
[2017-08-09] MEDS: Pantoprazole Inj IVP SCH (08:55)
[2017-08-09] MEDS: Docusate Sod/Senna tab ORAL SCH ×2 (08:56→18:00)
[2017-08-09] MEDS: Heparin 5000 units/ml inj SUBQ SCH ×2 (08:56→21:22)
--- NOTE | 2017-08-09 10:13 | Infectious Diseases Prog Note ---
Assessment/Plan Assessment/Plan Assessment: Acute perforated appendicitis s/p open appendectomy 08/06 -OR findings: very large inflammatory mass identified: appendix with the preperitoneal fat and probably an abscess and this mass was about the size of a fist. Leukocytosis- 2ry to above; persistent Plan: -Continue Ceftriaxone and Flagyl # 4 / ; upon discharge PO Levaquin and Flagyl -2/6 SP Zosyn and Gentamicin #1 -Monitor CBC/BMP, -wound care -sx f/u Subjective Allergies: Coded Allergies: No Known Allergies (Unverified , 08/05/17) Objective Vital Signs Last 24 Hour Vital Signs Date Time Temp Pulse Resp B/P (MAP) Pulse Ox O2 Delivery O2 Flow Rate FiO2 08/09/17 08:00 98.1 65 19 133/90 96 08/09/17 04:00 98.3 72 19 138/86 95 08/09/17 00:00 99.1 79 18 134/82 94 08/09/17 00:00 Room Air 08/08/17 20:00 Room Air 08/08/17 20:00 98.0 74 18 112/74 92 08/08/17 16:00 Room Air 08/08/17 16:00 98.9 97 19 127/84 97 08/08/17 12:00 Room Air 08/08/17 12:00 98.6 87 19 131/84 95 Height (Feet): 5 Height (Inches): 3.00 Weight (Pounds): 207 Laboratory Tests Test 08/09/17 08:15 White Blood Count 11.0 K/UL (4.8-10.8) H Red Blood Count 4.12 M/UL (4.70-6.10) L Hemoglobin 12.7 G/DL (14.2-18.0) L Hematocrit 37.7 % (42.0-52.0) L Mean Corpuscular Volume 92 FL (80-99) Mean Corpuscular Hemoglobin 31.0 PG (27.0-31.0) Mean Corpuscular Hemoglobin Concent 33.8 G/DL (32.0-36.0) Red Cell Distribution Width 13.4 % (11.6-14.8) Platelet Count 293 K/UL (150-450) Mean Platelet Volume 6.1 FL (6.5-10.1) L Neutrophils (%) (Auto) 70.1 % (45.0-75.0) Lymphocytes (%) (Auto) 16.2 % (20.0-45.0) L Monocytes (%) (Auto) 9.1 % (1.0-10.0) Eosinophils (%) (Auto) 3.5 % (0.0-3.0) H Basophils (%) (Auto) 1.1 % (0.0-2.0) Sodium Level 135 MMOL/L (136-145) L Potassium Level 3.5 MMOL/L (3.5-5.1) Chloride Level 103 MMOL/L (98-107) Carbon Dioxide Level 27 MMOL/L (21-32) Anion Gap 5 mmol/L (5-15) Blood Urea Nitrogen 13 mg/dL (7-18) Creatinine 0.9 MG/DL (0.55-1.30) Estimat Glomerular Filtration Rate > 60 mL/min (>60) Glucose Level 149 MG/DL (74-106) H Calcium Level 8.1 MG/DL (8.5-10.1) L Phosphorus Level 2.6 MG/DL (2.5-4.9) Current Medications Medications (Trade) Dose Ordered Sig/Vinh Route PRN Reason Start Time Stop Time Status Last Admin Dose Admin Acetaminophen (Tylenol) 650 mg Q4H PRN ORAL fever 08/06/17 05:15 09/05/17 05:14 Acetaminophen (Tylenol) 650 mg Q4H PRN RECTAL Mild Pain (Pain Scale 1-3) 08/06/17 07:00 09/05/17 06:59 Dextrose (Dextrose 50%) STAT PRN IV Hypoglycemia 08/06/17 05:15 09/05/17 05:14 Dextrose/ Electrolytes 1,000 ml @ 100 mls/hr Q10H IV 08/06/17 09:00 09/05/17 08:59 08/09/17 07:02 Diphenhydramine HCl (Benadryl) 25 mg Q6H PRN ORAL Itching/Pruritis 08/06/17 05:15 09/05/17 05:14 Heparin Sodium (Porcine) (Heparin 5000 units/ml) 5,000 units EVERY 12 HOURS SUBQ 08/06/17 09:00 09/05/17 08:59 08/09/17 08:56 Hydromorphone HCl (Dilaudid) 1 mg Q4H PRN IVP MOD-SEVERE PAIN 4-10 08/06/17 07:00 08/13/17 06:59 08/08/17 11:43 Nitroglycerin (Ntg) 0.4 mg Q5M X 3 DOSES PRN SL Prn Chest Pain 08/06/17 05:15 09/05/17 05:14 Ondansetron HCl (Zofran) 4 mg Q6H PRN IVP Nausea & Vomiting 08/06/17 05:15 09/05/17 05:14 Pantoprazole (Protonix) 40 mg DAILY IVP 08/06/17 09:00 09/05/17 08:59 08/09/17 08:55 Piperacillin Sod/ Tazobactam Sod 4.5 gm/Sodium Chloride 110 ml @ 27.5 mls/hr EVERY 8 HOURS IVPB 08/07/17 12:30 08/14/17 12:29 08/09/17 05:28 Senna/Docusate Sodium (Jazzy-Colace) 1 tab TWICE A DAY ORAL 08/08/17 18:00 09/07/17 17:59 08/09/17 08:56 ARIELLA JOHNSON M.D. Aug 09, 2017 10:13
[2017-08-09 12:00] VITALS: BP 142/83
--- NOTE | 2017-08-09 13:25 | GI Progress Note ---
Assessment/Plan Problems: (1) Perforated appendicitis ICD Codes: K35.2 - Acute appendicitis with generalized peritonitis SNOMED: 18490133 (2) Abdominal pain ICD Codes: R10.9 - Unspecified abdominal pain SNOMED: 77171046 Qualifiers: Qualified Codes: R10.11 - Right upper quadrant pain Status: progressing Status Narrative Discussed with Dr. Samano. Assessment/Plan fu surgical recs diet per surgery bowel regime pain mgmt electrolyte replacement abx fu labs Subjective Subjective pain improving passing gas ambulates to restroom constipated Objective Last 24 Hour Vital Signs Date Time Temp Pulse Resp B/P (MAP) Pulse Ox O2 Delivery O2 Flow Rate FiO2 08/09/17 12:00 98.9 72 19 142/83 98 08/09/17 08:00 98.1 65 19 133/90 96 08/09/17 04:00 98.3 72 19 138/86 95 08/09/17 00:00 99.1 79 18 134/82 94 08/09/17 00:00 Room Air 08/08/17 20:00 Room Air 08/08/17 20:00 98.0 74 18 112/74 92 08/08/17 16:00 Room Air 08/08/17 16:00 98.9 97 19 127/84 97 Intake and Output 08/08/17 08/09/17 19:00 07:00 Intake Total 1550.0 ml 1140 ml Output Total 1300 ml Balance 250.0 ml 1140 ml Intake Oral 240 ml 240 ml IV Total 1310.0 ml 900 ml Output Urine Total 1300 ml # Voids 4 2 Laboratory Tests Test 08/09/17 08:15 White Blood Count 11.0 K/UL (4.8-10.8) H Red Blood Count 4.12 M/UL (4.70-6.10) L Hemoglobin 12.7 G/DL (14.2-18.0) L Hematocrit 37.7 % (42.0-52.0) L Mean Corpuscular Volume 92 FL (80-99) Mean Corpuscular Hemoglobin 31.0 PG (27.0-31.0) Mean Corpuscular Hemoglobin Concent 33.8 G/DL (32.0-36.0) Red Cell Distribution Width 13.4 % (11.6-14.8) Platelet Count 293 K/UL (150-450) Mean Platelet Volume 6.1 FL (6.5-10.1) L Neutrophils (%) (Auto) 70.1 % (45.0-75.0) Lymphocytes (%) (Auto) 16.2 % (20.0-45.0) L Monocytes (%) (Auto) 9.1 % (1.0-10.0) Eosinophils (%) (Auto) 3.5 % (0.0-3.0) H Basophils (%) (Auto) 1.1 % (0.0-2.0) Sodium Level 135 MMOL/L (136-145) L Potassium Level 3.5 MMOL/L (3.5-5.1) Chloride Level 103 MMOL/L (98-107) Carbon Dioxide Level 27 MMOL/L (21-32) Anion Gap 5 mmol/L (5-15) Blood Urea Nitrogen 13 mg/dL (7-18) Creatinine 0.9 MG/DL (0.55-1.30) Estimat Glomerular Filtration Rate > 60 mL/min (>60) Glucose Level 149 MG/DL (74-106) H Calcium Level 8.1 MG/DL (8.5-10.1) L Phosphorus Level 2.6 MG/DL (2.5-4.9) Height (Feet): 5 Height (Inches): 3.00 Weight (Pounds): 207 General Appearance: WD/WN, no apparent distress, alert Cardiovascular: normal rate Respiratory/Chest: normal breath sounds, no respiratory distress Abdominal Exam: normal bowel sounds, non tender, soft, incision site Extremities: normal range of motion, non-tender Hien Smith N.P. Aug 09, 2017 13:25
[2017-08-09 16:00] VITALS: BP 139/80
[2017-08-09] MEDS: Docusate 100mg cap ORAL SCH (18:00)
[2017-08-09] MEDS ORDERED: Miralax 17gm pkt ORAL SCH (21:00)
[2017-08-09 21:02] VITALS: BP 127/85
[2017-08-09] MEDS ORDERED: LEVOFLOXACIN500 MG ORAL (23:38)
[2017-08-09] MEDS ORDERED: METRONIDAZOLE500 MG ORAL (23:38)
--- NOTE | 2017-08-09 23:39 | Pulmonology Progress Note ---
Assessment/Plan Problems: (1) Perforated appendicitis Assessment/Plan tolerating diet dc in am with oral abx as recommended by ID pain management Subjective ROS Limited/Unobtainable: No Constitutional: Reports: no symptoms HEENT: Repors: no symptoms Allergies: Coded Allergies: No Known Allergies (Unverified , 08/05/17) Objective Last 24 Hour Vital Signs Date Time Temp Pulse Resp B/P (MAP) Pulse Ox O2 Delivery O2 Flow Rate FiO2 08/09/17 21:02 99.0 83 18 127/85 94 08/09/17 16:00 97.9 70 19 139/80 99 08/09/17 12:00 98.9 72 19 142/83 98 08/09/17 08:00 98.1 65 19 133/90 96 08/09/17 04:00 98.3 72 19 138/86 95 08/09/17 00:00 99.1 79 18 134/82 94 08/09/17 00:00 Room Air Intake and Output 08/08/17 08/09/17 19:00 07:00 Intake Total 1550.0 ml 1140 ml Output Total 1300 ml Balance 250.0 ml 1140 ml Intake Oral 240 ml 240 ml IV Total 1310.0 ml 900 ml Output Urine Total 1300 ml # Voids 4 2 Objective General Appearance: no acute distress HEENT: normocephalic, atraumatic, anicteric, mucous membranes moist Respiratory/Chest: lungs clear, no respiratory distress, no accessory muscle use Cardiovascular: regular rhythm, SR on tele , R groin [place]-cath , intact Abdomen: normal bowel sounds, soft, non tender - soft, GEOFF in place Extremities: no edema Neurologic/Psychiatric: no motor/sensory deficits, alert, oriented x 3, responsive Musculoskeletal: normal muscle bulk Laboratory Tests 08/09/17 08:15: White Blood Count 11.0H, Red Blood Count 4.12L, Hemoglobin 12.7L, Hematocrit 37.7L, Mean Corpuscular Volume 92, Mean Corpuscular Hemoglobin 31.0, Mean Corpuscular Hemoglobin Concent 33.8, Red Cell Distribution Width 13.4, Platelet Count 293, Mean Platelet Volume 6.1L, Neutrophils (%) (Auto) 70.1, Lymphocytes ( %) (Auto) 16.2L, Monocytes (%) (Auto) 9.1, Eosinophils (%) (Auto) 3.5H, Basophils (%) (Auto) 1.1, Sodium Level 135L, Potassium Level 3.5, Chloride Level 103, Carbon Dioxide Level 27, Anion Gap 5, Blood Urea Nitrogen 13, Creatinine 0.9, Estimat Glomerular Filtration Rate > 60, Glucose Level 149H, Calcium Level 8.1L, Phosphorus Level 2.6 Current Medications Medications (Trade) Dose Ordered Sig/Vinh Route PRN Reason Start Time Stop Time Status Last Admin Dose Admin Acetaminophen (Tylenol) 650 mg Q4H PRN ORAL fever 08/06/17 05:15 09/05/17 05:14 Acetaminophen (Tylenol) 650 mg Q4H PRN RECTAL Mild Pain (Pain Scale 1-3) 08/06/17 07:00 09/05/17 06:59 Dextrose (Dextrose 50%) STAT PRN IV Hypoglycemia 08/06/17 05:15 09/05/17 05:14 Diphenhydramine HCl (Benadryl) 25 mg Q6H PRN ORAL Itching/Pruritis 08/06/17 05:15 09/05/17 05:14 Docusate Sodium (Colace) 100 mg THREE TIMES A DAY ORAL 08/09/17 18:00 09/08/17 17:59 Heparin Sodium (Porcine) (Heparin 5000 units/ml) 5,000 units EVERY 12 HOURS SUBQ 08/06/17 09:00 09/05/17 08:59 08/09/17 21:22 Hydromorphone HCl (Dilaudid) 1 mg Q4H PRN IVP MOD-SEVERE PAIN 4-10 08/06/17 07:00 08/13/17 06:59 08/08/17 11:43 Nitroglycerin (Ntg) 0.4 mg Q5M X 3 DOSES PRN SL Prn Chest Pain 08/06/17 05:15 09/05/17 05:14 Ondansetron HCl (Zofran) 4 mg Q6H PRN IVP Nausea & Vomiting 08/06/17 05:15 09/05/17 05:14 Pantoprazole (Protonix) 40 mg DAILY IVP 08/06/17 09:00 09/05/17 08:59 08/09/17 08:55 Piperacillin Sod/ Tazobactam Sod 4.5 gm/Sodium Chloride 110 ml @ 27.5 mls/hr EVERY 8 HOURS IVPB 08/07/17 12:30 08/14/17 12:29 08/09/17 21:19 Polyethylene Glycol (Miralax) 17 gm BEDTIME ORAL 08/09/17 21:00 09/08/17 20:59 08/09/17 21:19 Senna/Docusate Sodium (Jazzy-Colace) 1 tab TWICE A DAY ORAL 08/08/17 18:00 09/07/17 17:59 08/09/17 08:56 ATILIO WONG Aug 09, 2017 23:39
[2017-08-10 00:13] VITALS: BP 121/80
[2017-08-10] MEDS: Piperacillin/Tazobactam 4.5 GM in NS 110 ML IVPB SCH (04:55)
[2017-08-10 04:56] VITALS: BP 128/86
[2017-08-10 07:50] LABS: BASOPHILS % (AUTO) 1.9 % (0.0-2.0); EOSINOPHILS % (AUTO) 3.6 % (0.0-3.0); HEMATOCRIT 40.1 % (42.0-52.0); HEMOGLOBIN 13.4 G/DL (14.2-18.0); LYMPHOCYTES % (AUTO) 22.4 % (20.0-45.0); MEAN CORPUSCULAR VOLUME 91 FL (80-99); MONOCYTES % (AUTO) 10.4 % (1.0-10.0); NEUTROPHILS % (AUTO) 61.8 % (45.0-75.0); PLATELET COUNT 352 K/UL (150-450); RED BLOOD COUNT 4.41 M/UL (4.70-6.10); RED CELL DISTRIBUTION WIDTH 13.3 % (11.6-14.8); WHITE BLOOD COUNT 11.6 K/UL (4.8-10.8)
[2017-08-10 07:58] LABS: ANION GAP 6 mmol/L (5-15); BLOOD UREA NITROGEN 11 mg/dL (7-18); CALCIUM 8.8 MG/DL (8.5-10.1); CARBON DIOXIDE 28 MMOL/L (21-32); CHLORIDE 102 MMOL/L (98-107); POTASSIUM 4.3 MMOL/L (3.5-5.1); SODIUM 136 MMOL/L (136-145)
[2017-08-10] MEDS: Heparin 5000 units/ml inj SUBQ SCH (08:43)
[2017-08-10 09:00] VITALS: BP 122/78
[2017-08-10] MEDS: Docusate Sod/Senna tab ORAL SCH (09:34)
[2017-08-10] MEDS: Docusate 100mg cap ORAL SCH (09:34)
[2017-08-10] MEDS: Pantoprazole Inj IVP SCH (09:34)
[2017-08-10] MEDS ORDERED: Tubing IV Secondary IV ONE (10:39)
--- NOTE | 2017-08-10 10:45 | Pulmonology Progress Note ---
Assessment/Plan Problems: (1) Perforated appendicitis Assessment/Plan tolerating diet dc in am with oral abx as recommended by ID pain management Subjective ROS Limited/Unobtainable: No Constitutional: Reports: no symptoms HEENT: Repors: no symptoms Respiratory: Reports: no symptoms Allergies: Coded Allergies: No Known Allergies (Unverified , 08/05/17) Objective Last 24 Hour Vital Signs Date Time Temp Pulse Resp B/P (MAP) Pulse Ox O2 Delivery O2 Flow Rate FiO2 08/10/17 09:00 98.8 20 122/78 08/10/17 09:00 98.8 80 20 122/78 80 08/10/17 04:56 Room Air 08/10/17 04:56 98.5 64 20 128/86 96 08/10/17 00:13 Room Air 08/10/17 00:13 98.7 79 19 121/80 94 08/09/17 21:02 Room Air 08/09/17 21:02 99.0 83 18 127/85 94 08/09/17 16:00 97.9 70 19 139/80 99 08/09/17 12:00 98.9 72 19 142/83 98 Intake and Output 08/09/17 08/10/17 19:00 07:00 Intake Total 680 ml 420 ml Balance 680 ml 420 ml Intake Oral 680 ml 420 ml # Voids 2 2 # Bowel Movements 1 2 Objective General Appearance: no acute distress HEENT: normocephalic, atraumatic, anicteric, mucous membranes moist Respiratory/Chest: lungs clear, no respiratory distress, no accessory muscle use Cardiovascular: regular rhythm, SR on tele , R groin [place]-cath , intact Abdomen: normal bowel sounds, soft, non tender - soft, GEOFF in place Extremities: no edema Neurologic/Psychiatric: no motor/sensory deficits, alert, oriented x 3, responsive Musculoskeletal: normal muscle bulk Laboratory Tests 08/10/17 07:04: White Blood Count 11.6H, Red Blood Count 4.41L, Hemoglobin 13.4L, Hematocrit 40.1L, Mean Corpuscular Volume 91, Mean Corpuscular Hemoglobin 30.3, Mean Corpuscular Hemoglobin Concent 33.3, Red Cell Distribution Width 13.3, Platelet Count 352, Mean Platelet Volume 6.2L, Neutrophils (%) (Auto) 61.8, Lymphocytes ( %) (Auto) 22.4, Monocytes (%) (Auto) 10.4H, Eosinophils (%) (Auto) 3.6H, Basophils (%) (Auto) 1.9, Sodium Level 136, Potassium Level 4.3, Chloride Level 102, Carbon Dioxide Level 28, Anion Gap 6, Blood Urea Nitrogen 11, Creatinine 1.0, Estimat Glomerular Filtration Rate > 60, Glucose Level 92, Calcium Level 8.8 Current Medications Medications (Trade) Dose Ordered Sig/Vinh Route PRN Reason Start Time Stop Time Status Last Admin Dose Admin Acetaminophen (Tylenol) 650 mg Q4H PRN ORAL fever 08/06/17 05:15 09/05/17 05:14 Acetaminophen (Tylenol) 650 mg Q4H PRN RECTAL Mild Pain (Pain Scale 1-3) 08/06/17 07:00 09/05/17 06:59 Dextrose (Dextrose 50%) STAT PRN IV Hypoglycemia 08/06/17 05:15 09/05/17 05:14 Diphenhydramine HCl (Benadryl) 25 mg Q6H PRN ORAL Itching/Pruritis 08/06/17 05:15 09/05/17 05:14 Docusate Sodium (Colace) 100 mg THREE TIMES A DAY ORAL 08/09/17 18:00 09/08/17 17:59 08/10/17 09:34 Heparin Sodium (Porcine) (Heparin 5000 units/ml) 5,000 units EVERY 12 HOURS SUBQ 08/06/17 09:00 09/05/17 08:59 08/10/17 08:43 Hydromorphone HCl (Dilaudid) 1 mg Q4H PRN IVP MOD-SEVERE PAIN 4-10 08/06/17 07:00 08/13/17 06:59 08/08/17 11:43 Nitroglycerin (Ntg) 0.4 mg Q5M X 3 DOSES PRN SL Prn Chest Pain 08/06/17 05:15 09/05/17 05:14 Ondansetron HCl (Zofran) 4 mg Q6H PRN IVP Nausea & Vomiting 08/06/17 05:15 09/05/17 05:14 Pantoprazole (Protonix) 40 mg DAILY IVP 08/06/17 09:00 09/05/17 08:59 08/10/17 09:34 Piperacillin Sod/ Tazobactam Sod 4.5 gm/Sodium Chloride 110 ml @ 27.5 mls/hr EVERY 8 HOURS IVPB 08/07/17 12:30 08/14/17 12:29 08/10/17 04:55 Polyethylene Glycol (Miralax) 17 gm BEDTIME ORAL 08/09/17 21:00 09/08/17 20:59 08/09/17 21:19 Senna/Docusate Sodium (Jazzy-Colace) 1 tab TWICE A DAY ORAL 08/08/17 18:00 09/07/17 17:59 08/10/17 09:34 ATILIO WONG Aug 10, 2017 10:45
--- NOTE | 2017-08-12 14:42 | Discharge Summary ---
Discharge Summary Hospital Course Date of Admission Aug 06, 2017 at 03:11 Date of Discharge Aug 10, 2017 at 10:40 Admitting Diagnosis perforated appendicitis KJ Jacobs is a 47 year old male who was admitted on Aug 06, 2017 at 03:11 for Perforated Appendicitis Hospital Course dc summary #[id number] Discharge Medications New Medications: Levofloxacin (Levofloxacin*) 500 Mg Tablet 500 MG ORAL DAILY for 3 Days, TAB Metronidazole* (Flagyl*) 500 Mg Tablet 500 MG ORAL EVERY 8 HOURS for 3 Days, TAB Discharge Condition Upon Discharge: stable Discharge Disposition Patient was discharged to Home () Discharge Diagnoses: Discharge Instructions Discharge Instructions Special Instructions I have been assigned to complete a D/C Summary on this account. I was not involved in the patient management Kimmy Henriquez NP ([facility]) Aug 12, 2017 14:42
--- NOTE | 2017-08-13 10:30 | Discharge Summary 2 SIG ---
DATE OF ADMISSION: 08/06/2017 DATE OF DISCHARGE: 08/10/2017 REASON FOR ADMISSION: 47-year-old male without any significant past medical history, presented to emergency department with a complaint of two to three days right lower quadrant abdominal pain, one episode of nausea and vomiting. No constipation. No diarrhea. No difficulty urinating. No prior abdominal surgery. The patient reported symptoms started after he had food. Vital signs revealed tachycardia -115, but the patient was afebrile. Otherwise, stable vital signs. Laboratory workup revealed leukocytosis. WBC- 19. CT of the abdomen and pelvis was consistent with perforated appendicitis. The patient was made NPO, started on IV fluids. Surgery was urgently consulted. The patient was admitted for emergency surgery. HOSPITAL COURSE: The patient was admitted to medical/surgical floor. The patient was NPO on IV fluids. The surgeon initially attempted laparoscopic appendectomy, but ended up doing open appendectomy on 08/06/2017. Course of recovery was uneventful. Initially, NPO until bowel function returned. Afterwards, slowly started on diet and advanced as tolerated. Infectious Diseases specialist closely followed. The patient was on empiric antibiotic and switched to oral antibiotic prior to discharge. Leukocytosis resolved, likely secondary to acute perforated appendicitis. GI closely followed. GI started the patient on bowel regimen. Electrolytes were closely monitored and corrected as needed. Diet was slowly advanced. The patient was able to tolerate diet. The patient ambulated. Dressing was clean, dry, and intact. The patient was stable for discharge home and follow up with the surgeon as outpatient as advised. FINAL DIAGNOSES: 1. Abdominal pain. 2. Acute perforated appendicitis 3. Status post open appendectomy on 08/06/2017. DISCHARGE MEDICATIONS: See medication reconciliation list. DISCHARGE INSTRUCTIONS: The patient was discharged home. Follow up with the surgeon as advised. Jarrett Pendleton M.D. I have been assigned to dictate discharge summary on this account and I was not involved in the patient's management. Kimmy Arthtein) N.PDamian DR: Mingo JOB#: [id number] CC: MELISSA
== END 2017-08-10 10:40 | disposition home or self-care (01) | DRG 223 ==
LOC: EMR 08-06 00:37 → SDSOVERFLO 08-06 03:11 → 3E 08-06 07:44
PROC: 0DTJ0ZZ Resection of Appendix, Open Approach (ICD-10-PCS; principal; 2017-08-09)
PROC: 0DJD4ZZ Inspection of Lower Intestinal Tract, Percutaneous Endoscopic Approach (ICD-10-PCS; 2017-08-09)
DX: K35.3 Acute appendicitis with localized peritonitis (principal); E66.9 Obesity, unspecified; D72.829 Elevated white blood cell count, unspecified; Z53.31 Laparoscopic surgical procedure converted to open procedure; Z68.36 Body mass index [BMI] 36.0-36.9, adult; Z90.79 Acquired absence of other genital organ(s)
CPT/HCPCS: 36415; 74177; 80048; 80053; 81003; 82150; 83605; 83690; 83735; 84100; 85007; 85025; 85610; 85730; 86850; 86900; 86901; 94003; 94150; C9399; J2250; J2405

== ENCOUNTER 2017-10-27 13:06 | Emergency (ER) | payer MEDICAID ==
[~2017-10-27] VITALS: Ht 165.1 cm; Wt 98.4 kg
[~2017-10-27 13:06] MED LIST: LEVOFLOXACIN500 MG ORAL; METRONIDAZOLE500 MG ORAL; NKM
[2017-10-27 13:10] VITALS: BP 149/100
[2017-10-27] MEDS ORDERED: Morphine Sulfate 2mg/ml Inj IVP ONE (13:45)
[2017-10-27] MEDS ORDERED: Morphine Sulfate 4mg/ml Inj IVP ONE (14:00)
[2017-10-27 14:02] LABS: BASOPHILS % (AUTO) 1.2 % (0.0-2.0); EOSINOPHILS % (AUTO) 1.6 % (0.0-3.0); HEMATOCRIT 46.1 % (42.0-52.0); HEMOGLOBIN 15.7 G/DL (14.2-18.0); MEAN CORPUSCULAR VOLUME 88 FL (80-99); MONOCYTES % (AUTO) 11.4 % (1.0-10.0); NEUTROPHILS % (AUTO) 50.8 % (45.0-75.0); PLATELET COUNT 253 K/UL (150-450); RED BLOOD COUNT 5.22 M/UL (4.70-6.10); RED CELL DISTRIBUTION WIDTH 12.9 % (11.6-14.8); WHITE BLOOD COUNT 7.2 K/UL (4.8-10.8)
[2017-10-27 14:33] LABS: APPEARANCE,URINE CLEAR; BILIRUBIN, URINE NEGATIVE (NEGATIVE); COLOR,URINE PALE YELLOW; GLUCOSE, URINE (UA) NEGATIVE (NEGATIVE); KETONES,URINE NEGATIVE (NEGATIVE); LEUKOCYTE ESTERASE ,URINE NEGATIVE (NEGATIVE); NITRITE,URINE NEGATIVE (NEGATIVE); PH,URINE 6 (4.5-8.0); PROTEIN,URINE NEGATIVE (NEGATIVE); UROBILINOGEN,URINE NORMAL MG/DL (0.0-1.0)
[2017-10-27 14:35] LABS: ANION GAP 9 mmol/L (5-15); BLOOD UREA NITROGEN 15 mg/dL (7-18); CALCIUM 8.6 MG/DL (8.5-10.1); CARBON DIOXIDE 25 MMOL/L (21-32); CHLORIDE 104 MMOL/L (98-107); CREATININE 0.9 MG/DL (0.55-1.30); POTASSIUM 4.1 MMOL/L (3.5-5.1); SODIUM 138 MMOL/L (136-145)
[2017-10-27 14:39] LABS: ALANINE AMINOTRANSFERASE 49 U/L (12-78); ALBUMIN 3.8 G/DL (3.4-5.0); ALBUMIN/GLOBULIN RATIO 0.9 (1.0-2.7); ALKALINE PHOSPHATASE 92 U/L (46-116); ASPARTATE AMINO TRANSFERASE 24 U/L (15-37); BILIRUBIN,TOTAL 0.5 MG/DL (0.2-1.0)
[2017-10-27] MEDS ORDERED: SIMETHICONE125 M1 PO (15:16)
[2017-10-27] MEDS ORDERED: PEPCID20 MG ORAL (15:16)
[2017-10-27 15:34] VITALS: BP 135/80
--- NOTE | 2017-10-27 21:25 | Emergency Room Report ---
History of Present Illness General Chief Complaint: Abdominal Pain Source: Patient (RAFAEL BARROW) Present Illness HPI The patient is a 47 old male presenting for abdominal pain. She had appendectomy 2 months prior and encountered a wound infection for which he was treated with antibiotics and improved. He states abd pain has been present for approximately 1 week described as 5/10 dull ache to the mid lower abd. does not radiate. He does admit to increase flatulence. He denies diarrhea or constipation. Last bowel movement was this morning and unremarkable. He denies any melena or hematochezia. He denies other symptoms including nausea, vomiting, fever, chills (RAFAEL BARROW.Wale) Allergies: Coded Allergies: No Known Allergies (Unverified , 08/05/17) Patient History Past Medical History: see triage record Pertinent Family History: none Reviewed Nursing Documentation: PMH: Agreed; PSxH: Agreed (RAFAEL BARROW) Review of Systems All Other Systems: negative except mentioned in HPI (RAFAEL BARROW) Physical Exam Vital Signs Date Time Temp Pulse Resp B/P (MAP) Pulse Ox O2 Delivery O2 Flow Rate FiO2 10/27/17 13:10 97.8 77 17 149/100 96 Room Air 97.9 Sp02 EP Interpretation: reviewed, normal General Appearance: no apparent distress, alert, GCS 15, non-toxic Head: normocephalic, atraumatic Respiratory: chest non-tender, lungs clear, normal breath sounds, speaking full sentences Cardiovascular #1: regular rate, rhythm, no edema Gastrointestinal: normal bowel sounds, soft, non-distended, no guarding, no rebound, tenderness - suprapubic Genitourinary: normal inspection, no CVA tenderness Musculoskeletal: back normal, gait/station normal, normal range of motion, non- tender Neurologic: alert, oriented x3, responsive, motor strength/tone normal, sensory intact, speech normal Psychiatric: judgement/insight normal, memory normal, mood/affect normal, no suicidal/homicidal ideation Skin: normal color, warm/dry, well hydrated, other - RLQ surgical scar well healing (RAFAEL BARROW) Medical Decision Making PA Attestation Dr. Man is my supervising physician. Patient management was discussed with my supervising physician (RAFAEL BARROW) Diagnostic Impression: Primary Impression: Abdominal pain Qualified Codes: R10.9 - Unspecified abdominal pain ER Course The patient is a 47 old male presenting for abdominal pain Differential diagnoses considered include but not limited to cellulitis, abscess , SBO, UTI, gastroenteritis, among others PE: NAD. Afebrile. Abdomen is soft. Normal bowel sounds. Nondistended. There is tenderness over suprapubic region only. Right lower quadrant has surgical scar. Well healing. No surrounding erythema. No CVA tenderness Blood work is unremarkable. No leukocytosis Urinalysis unremarkable The patient will be discharged home with prescription for pepcid and simethicone. He will FU with surgeon. ER precautions given Laboratory Tests Test 10/27/17 13:45 10/27/17 14:15 White Blood Count 7.2 K/UL (4.8-10.8) Red Blood Count 5.22 M/UL (4.70-6.10) Hemoglobin 15.7 G/DL (14.2-18.0) Hematocrit 46.1 % (42.0-52.0) Mean Corpuscular Volume 88 FL (80-99) Mean Corpuscular Hemoglobin 30.0 PG (27.0-31.0) Mean Corpuscular Hemoglobin Concent 34.0 G/DL (32.0-36.0) Red Cell Distribution Width 12.9 % (11.6-14.8) Platelet Count 253 K/UL (150-450) Mean Platelet Volume 6.3 FL (6.5-10.1) L Neutrophils (%) (Auto) 50.8 % (45.0-75.0) Lymphocytes (%) (Auto) 35.0 % (20.0-45.0) Monocytes (%) (Auto) 11.4 % (1.0-10.0) H Eosinophils (%) (Auto) 1.6 % (0.0-3.0) Basophils (%) (Auto) 1.2 % (0.0-2.0) Prothrombin Time 10.0 SEC (9.30-11.50) Prothrombin Time INR 1.0 (0.9-1.1) PTT 27 SEC (23-33) Sodium Level 138 MMOL/L (136-145) Potassium Level 4.1 MMOL/L (3.5-5.1) Chloride Level 104 MMOL/L (98-107) Carbon Dioxide Level 25 MMOL/L (21-32) Anion Gap 9 mmol/L (5-15) Blood Urea Nitrogen 15 mg/dL (7-18) Creatinine 0.9 MG/DL (0.55-1.30) Estimate Glomerular Filtration Rate > 60 mL/min (>60) Glucose Level 116 MG/DL (74-106) H Calcium Level 8.6 MG/DL (8.5-10.1) Total Bilirubin 0.5 MG/DL (0.2-1.0) Aspartate Amino Transferase (AST) 24 U/L (15-37) Alanine Aminotransferase (ALT) 49 U/L (12-78) Alkaline Phosphatase 92 U/L (46-116) Total Protein 8.2 G/DL (6.4-8.2) Albumin 3.8 G/DL (3.4-5.0) Globulin 4.4 g/dL Albumin/Globulin Ratio 0.9 (1.0-2.7) L Lipase 203 U/L (73-393) Urine Color Pale yellow Urine Appearance Clear Urine pH 6 (4.5-8.0) Urine Specific Weldon 1.015 (1.005-1.035) Urine Protein Negative (NEGATIVE) Urine Glucose (UA) Negative (NEGATIVE) Urine Ketones Negative (NEGATIVE) Urine Occult Blood Negative (NEGATIVE) Urine Nitrite Negative (NEGATIVE) Urine Bilirubin Negative (NEGATIVE) Urine Urobilinogen Normal MG/DL (0.0-1.0) Urine Leukocyte Esterase Negative (NEGATIVE) Lab Results Impression All unremarkable. No leukocytosis (RAFAEL BARROW P.A.) Other X-Ray Diagnostic Results Other X-Ray Diagnostic Results : X-Ray ordered: Abd pain # of Views/Limited Vs Complete: 1 View Indication: Pain EP Interpretation: Yes PA Xray: Interpretation reviewed, by supervising MD, and agrees with findings. Interpretation: nonspecific bowel gas, no sbo Impression: No acute disease Electronically Signed by: Rafael Barrow PA-C (RAFAEL BARROW P.A.) Other X-Ray Diagnostic Results : Electronically Signed by: Rhiannon documentation reviewed by me and is accurate, Brandon Man MD. (Brandon Man M.D.) Last Vital Signs Date Time Temp Pulse Resp B/P (MAP) Pulse Ox O2 Delivery O2 Flow Rate FiO2 10/27/17 15:34 98.6 84 20 135/80 100 Room Air 98.6 Status: improved (RAFAEL BARROW) Disposition: HOME, SELF-CARE Condition: Improved Scripts Famotidine (PEPCID) 20 Mg Tablet 20 MG ORAL DAILY, #7 TAB 0 Refills Prov: RAFAEL BARROW 10/27/17 Simethicone (Simethicone) 125 Mg Capsule 125 MG PO Q6HR, #28 CAP Prov: RAFAEL BARROW.Joo. 10/27/17 Patient Instructions: Abdominal Pain, Adult Additional Instructions: I discussed my findings with the patient. All questions and concerns have been answered. Treatment and medication compliance have been addressed. I advised the patient that they need to follow up with their surgeon. Return to ED if symptoms worsen, new symptoms arise, or if needed for any reason. Patient verbalized understanding of discharge instructions. RAFAEL BARROW Oct 27, 2017 21:25 Brandon Man M.D. October 30, 2017 15:48
--- NOTE | 2017-10-28 13:47 | Diagnostic Imaging Report ---
Indication: Abdominal pain Technique: XRAY Abdomen 1v Comparison: CT of the abdomen and pelvis 08/06/2017 Findings: Nonspecific bowel gas pattern with overall paucity of bowel gas. Gas pattern is not overtly obstructive. There is no definite evidence suggestive of free intraperitoneal air however evaluation is limited without erect view. There are surgical clips in the right lower quadrant possibly related to prior appendectomy. No acute osseous abnormality seen. Impression: Nonspecific bowel gas pattern as above. Question prior appendectomy with surgical clips in the right lower quadrant. More sensitive evaluation with CT of the abdomen can be obtained as clinically indicated.
== END 2017-10-27 15:30 | disposition home or self-care (01) ==
LOC: EMR 13:50
DX: R10.9 Unspecified abdominal pain (principal)
CPT/HCPCS: 36415; 74018; 80053; 81003; 83690; 85025; 85610; 85730; 96374; 96375; 99284; J2270; J2405